=== PATIENT | male | born 1955 | race Caucasian/White ===

== ENCOUNTER 2016-09-10 11:43 | Inpatient (IN) | payer BC ==
[2016-09-10] MEDS ORDERED: Heparin for STEMI(*) 5,000 UNITS/ML 1 ML VIAL IV ONE (12:01)
[2016-09-10] MEDS ORDERED: Nitroglycerin TAB 0.4 MG* 0.4 MG TAB SL ONE (12:01)
[2016-09-10] MEDS ORDERED: Aspirin TAB* 325 MG PO ONE (12:01)
[2016-09-10] MEDS ORDERED: Ticagrelor* 90 MG TAB PO ONE ×2 (12:16→12:17)
[2016-09-10] MEDS ORDERED: Midazolam* 1 MG/ML 5 ML VIAL (5 MG) ONE (12:17)
[2016-09-10] MEDS ORDERED: fentaNYL* 50 MCG/ML 2 ML VIAL (100 MCG VIAL) ONE (12:17)
[2016-09-10] MEDS ORDERED: nitroGLYCERIN DRIP* 250 ML ONE (12:18)
[2016-09-10] MEDS ORDERED: Iohexol 350 (CONTRAST) 200 ML MDV IV ONE ×2 (12:18→12:26)
[2016-09-10] MEDS ORDERED: Heparin 2 UNITS/ML IVPREMIX* 2,000 ML IV ONE (12:18)
[2016-09-10] MEDS ORDERED: Lidocaine 1% INJ* 10 MG/ML 30 ML SDV ONE (12:18)
[2016-09-10] MEDS ORDERED: DOPamine 200 MG/250 ML IVPREM* 200 MG/250 ML ML IV ONE (12:26)
[2016-09-10] MEDS ORDERED: Atropine SYRINGE* 0.1 MG/ML 10 ML SYRINGE (1 MG) ONE (12:30)
[2016-09-10 12:32] LABS: Hematocrit 42 % (42-52); Hemoglobin 13.8 g/dl (14.0-18.0); Mean Corpuscular HGB Conc 33 g/dl (31-36); Mean Corpuscular Hemoglobin 29 pg (27-31); Mean Corpuscular Volume 88 fL (80-94); Mean Platelet Volume 8 um3 (7.4-10.4); Red Blood Count 4.77 10^6/ul (4.0-5.4); Red Cell Distribution Width 14 % (10.5-15); White Blood Count 8.3 10^3/ul (3.5-10.8)
[2016-09-10 12:49] LABS: Albumin 4.1 g/dL (3.2-5.2); BUN/Creatinine Ratio 18.4 (8-20); Calcium 9.2 mg/dL (8.6-10.3); EGFR Non-African American 77.8 (>60); Globulin 3.2 g/dL (2-4); Potassium 3.6 mmol/L (3.5-5.0); Total Bilirubin 0.7 mg/dL (0.2-1.0); Total Protein 7.3 g/dL (6.4-8.9)
[2016-09-10 13:04] LABS: Troponin I 2.75 ng/mL (<0.04)
--- NOTE | 2016-09-10 13:56 | ED ---
I, Yoel,German, scribed for Eric Winn MD on 09/10/16 at 1219 . HPI Chest Pain - HPI Summary HPI Summary: This 61 y/o male presents to ED for intermittent, exertional SOB and chest discomfort since yesterday. Pt reports that he was doing yardwork outdoor yesterday when he experienced SOB. Pt again experienced SOB and chest discomfort radiating while walking on treadmill this morning. He reports that he can handle 3.8 miles without a problem at his baseline, but could only walk 0.25 mile this morning. He also reports right shoulder discomfort but denies CP radiating to back or worsening with deep breaths. He also denies any fever, myalgia, or numbness/tingling. Pt is currently on Trental for known venous stasis. PMHx does not include any HTN, DM, or HLD, but does include mitral valve prolapse, multiple kidney litropsies and stents, and cardiac dysrhythmia since 1980. Pt last ate bagel ~ 1000 AM. - History of Current Complaint Time Seen by Provider: 09/10/16 11:59 Hx Obtained From: Patient, Medical Records Onset/Duration: Started Days Ago, Atraumatic, Still Present Timing: Constant Initial Severity: Moderate Current Severity: None Chest Pain Location: Diffuse Chest Pain Radiates: No Character: Dull/Aching Aggravating Factor(s): Exertion Alleviating Factor(s): Spontaneous Resolution Associated Signs and Symptoms: Positive: Chest Pain, Shortness of Breath, Other : - right shoulder discomfort.. Negative: Numbness, Tingling, Fever - Allergy/Home Medications Allergies/Adverse Reactions: Allergies Allergy/AdvReac Type Severity Reaction Status Date / Time Quinidine Allergy Unknown Verified 06/20/15 15:13 Reaction Details Quinine Allergy Unknown Verified 06/20/15 15:13 Reaction Details PMH/Surg Hx/FS Hx/Imm Hx Endocrine/Hematology History: Denies: Hx Diabetes Cardiovascular History: Reports: Other Cardiovascular Problems/Disorders - cardiac dysrhythmia Denies: Hx Hypertension, Hx Pacemaker/ICD History: Denies: Hx Renal Disease Sensory History: Denies: Hx Hearing Aid Psychiatric History: Denies: Hx Panic Disorder - Surgical History Surgery Procedure, Year, and Place: KIDNEY STENTS- LITHO - STENTS REMOVED. TONSILECTOMY. HERNIA - Family History Known Family History: Negative: Cardiac Disease - father with bypass in 70s. - Social History Alcohol Use: Rare Hx Substance Use: No Substance Use Type: Reports: None Hx Tobacco Use: No Smoking Status (MU): Never Smoked Tobacco Review of Systems Negative: Fever, Chills Negative: Erythema Negative: Sore Throat Positive: Chest Pain - exertional Positive: Shortness Of Breath - exertional Negative: Abdominal Pain, Vomiting, Nausea Negative: dysuria, hematuria Positive: Other - right shoulder discomfort. Negative: Myalgia, Edema Negative: Rash Neurological: Other - negative for dizziness All Other Systems Reviewed And Are Negative: Yes Physical Exam - Summary Physical Exam Summary: Constitutional: Well-developed, Well-nourished, Alert. (-) Distressed Skin: Warm, Dry HENT: Normocephalic; Atraumatic Eyes: Conjunctiva normal Neck: Musculoskeletal ROM normal neck. (-) JVD, (-) Stridor, (-) Tracheal deviation Cardio: Rhythm regular, rate normal, Heart sounds normal; Intact distal pulses; The pedal pulses are 2+ and symmetric. Radial pulses are 2+ and symmetric. (+) 3 /5 Systolic murmur Pulmonary/Chest wall: Effort normal. (-) Respiratory distress, (-) Wheezes, (-) Rales Abd: Soft, (-) Tenderness, (-) Distension, (-) Guarding, (-) Rebound Musculoskeletal: (-) Edema Lymph: (-) Cervical adenopathy Neuro: Alert, Oriented x3 Psych: Mood and affect Normal Triage Information Reviewed: Yes Vital Signs On Initial Exam: Initial Vitals Temp Pulse Resp BP Pulse Ox 36.6 C 98 16 104/74 98 09/10/16 12:05 09/10/16 12:05 09/10/16 12:05 09/10/16 12:05 09/10/16 12:05 Vital Signs Reviewed: Yes Diagnostics - Vital Signs Vital Signs Temp Pulse Resp BP Pulse Ox 09/10/16 12:05 36.6 C 98 16 104/74 98 - Laboratory Lab Results: Lab Results 09/10/16 Range/Units 12:01 B-Natriuretic Peptide 560 H ( - 100) pg/mL Result Diagrams: 09/10/16 12:26 09/10/16 12:26 Lab Statement: Any lab studies that have been ordered have been reviewed, and results considered in the medical decision making process. - Radiology CXR Radiology Interpretation Completed By: Radiologist - SEE EMR for radiologist reading - EKG 1208 Cardiac Rate: NL EKG Rhythm: Sinus Rhythm EKG Interpretation: RBBB. anterior STEMI, inferior V4-V6 1149 Cardiac Rate: NL - 89 bpm EKG Rhythm: Sinus Rhythm EKG Interpretation: RBBB and STEMI Chest Pain Course/Dx - Course Assessment/Plan: This 61 y/o male presents to ED for exertional SOB and chest discomfort since yesterday. PMHx includes afib and vtach as well as mitral valve prolapse. Repeat EKG both at triage and at time of the initial evaluation indicate anterior/inferior STEMI and RBBB. STEMI was called at [address] Barbour, interventionalist, was consulted, and pt was admitted. Re-eval while Dr. Argueta was at bedside. Pt became bradycardic/hypotensive during discussion of the cath, suspect vagal response. 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 Asymptomatic throughout ED stay - Diagnoses Provider Diagnoses: STEMI (ST elevation myocardial infarction) During the Visit The Following Alert/Code Occurred: STEMI - called at 1215 PM - Provider Notifications Discussed Care Of Patient With: Dr. Argueta (Interventionalist) at 1224 PM Time Discussed With Above Provider: 12:24 Instructed by Provider To: Admit As Inpatient - Critical Care Time Critical Care Time: 30-74 min Discharge - Discharge Plan Condition: Stable Disposition: ADMITTED TO [facility] The documentation as recorded by the Yoel salmon Soohyun accurately reflects the service I personally performed and the decisions made by , Eric Winn MD.
[2016-09-10] MEDS ORDERED: Ondansetron INJ* 2 MG/ML VIAL IV PRN (14:03)
[2016-09-10] MEDS ORDERED: Acetaminophen TAB* 325 MG PO PRN (14:03)
[2016-09-10] MEDS ORDERED: Nitroglycerin TAB 0.4 MG* 0.4 MG TAB SL PRN (14:03)
[2016-09-10] MEDS ORDERED: oxyCODONE/Acetamin 5/325 MG* TAB PO PRN (14:03)
[2016-09-10] MEDS ORDERED: Docusate CAP* 100 MG PO PRN (14:03)
[2016-09-10] MEDS ORDERED: NS 0.9% 1000 ML* 1,000 ML IV SCH (14:15)
[2016-09-10] MEDS: Atorvastatin* 40 MG TAB PO SCH ×2 (14:36→19:37)
[2016-09-10 20:58] LABS: Troponin I 2.08 ng/mL (<0.04)
[2016-09-10] MEDS ORDERED: Zolpidem TAB* 5 MG PO PRN (21:00)
[2016-09-10] MEDS: Ticagrelor* 90 MG TAB PO SCH (21:45)
[2016-09-10] MEDS: Metoprolol Tartrate TAB* 25 MG PO SCH (21:45)
--- NOTE | 2016-09-10 22:43 | HP ---
HISTORY AND PHYSICAL: DATE OF ADMISSION: 09/10/16 CHIEF COMPLAINT: Chest heaviness and shortness of breath with exertion. HISTORY OF PRESENT ILLNESS: The patient is a pleasant 61-year-old gentleman who was in his usual state of health until yesterday morning. He was out cutting tall grass plants when he started noticing toward the end of exertion the development of chest heavy sensation and shortness of breath. He rested for a while and eventually over the course of 20 minutes it improved and stopped. Later on last night, he attempted to exercise on a treadmill, something that he he does on a routine basis without significant difficulty but could only walk a short distance before developing the onset of recurrent chest pressure feelings and right shoulder discomfort and shortness of breath. He stopped doing this but did not seek medical attention at that time and it eventually went away. Today, while he was in the hospital doing rounds, he walked up a flight of stairs and as he walked up and got to the top flight he developed the onset of the chest pressure again and the shortness of breath for which he decided to present to the emergency room. He came to the emergency room with these symptoms and an immediate EKG was performed. That EKG revealed the presence of a right bundle branch block with ST segment changes with mild coving in V2, minimal coving in aVL and 1 with T- wave inversion in V3 through V6. Repeat EKG when symptoms seem to be subsided and feeling better revealed more T-wave inversions in the inferior leads and the coving had ceased in 1 in aVL and was still somewhat abnormal in V2. Right bundle branch configuration was seen on both EKGs. A STEMI alert was called in on arrival, the patient was still having mild symptoms. The decision was made to emergently proceed with cardiac catheterization to rule out the presence of critical disease, particularly to the left anterior descending artery. The risks and benefits were explained. He understood them and wished to proceed. PAST MEDICAL HISTORY: The patient has a remote past medical history of paroxysmal atrial fibrillation. More details to be obtained after the cardiac catheterization. He also has a history of lower leg edema and had peripheral venous insufficiency. His only medication was Trental 400 mg once a day. His cardiac risks factors included a negative history of smoking, a negative history of hypertension, negative history of diabetes, and no known history of increased cholesterol. FAMILY HISTORY: He has a family history of father who had bypass surgery at age 75. No history of early coronary artery disease. REVIEW OF SYSTEMS: Pertinent to proceeding with cardiac catheterization, possible intervention included no history of prior TIA, stroke. No history of hematochezia, hematemesis or hematuria. No history of renal insufficiency. PHYSICAL EXAMINATION GENERAL: When I saw him revealed the patient did not appear to be in significant acute distress. VITAL SIGNS: Blood pressure 104/74, pulse was 98 and regular, respirations 16, O2 saturation 98% on room air, afebrile. NECK: Supple. No increased JVP. Carotid without bruit. Conjunctivae were pink. Sclerae clear. LUNGS: Revealed no accessory muscle usage. They were clear to A and P. HEART: Revealed no visible heaves. No palpable heaves or thrills. Normal S1 and S2. I cannot appreciate a significant systolic or diastolic murmur. Heart sounds were somewhat distant. ABDOMEN: Soft and nontender. EXTREMITIES: Without significant clubbing, cyanosis and there was no profound pitting edema noted. The left leg did have a compression stocking in place. MUSCULOSKELETAL: The patient moves all extremities appropriate. NEUROLOGIC: Patient alert, oriented with normal mentation. PSYCHOLOGICAL: The patient with appropriate affect. DIAGNOSTIC STUDIES/LABORATORY DATA: Laboratory results pending at the time of the patient's initial evaluation. 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 At this point in time, I believe emergent cardiac catheterization is indicated. The risks and benefits were explained and he understood them and he wished to proceed. Of note, the patient has received full dose aspirin therapy, has received 180 mg of Brilinta, and 4000 units of heparin intravenously. Further management will be made pending results of the cardiac catheterization. CC: Jeremy Salomon MD * [id number]/[facility] #: [id number] JOSÉ MIGUEL
--- NOTE | 2016-09-10 22:51 | CATH ---
CARDIAC CATHETERIZATION REPORT: DATE OF PROCEDURE: 09/10/16 - ROOM #ICU-12 INDICATIONS FOR PROCEDURE: The patient presented with progressive chest discomfort with exertional activity with abnormal EKG raising the question of acute coronary syndrome with subtle anterior wall ST elevation in early precordial leads and T- wave inversions inferiorly and laterally. PROCEDURE: Coronary arteriography, left heart catheterization, left ventriculography. DESCRIPTION OF PROCEDURE: The patient was interviewed and examined in the emergency room where the risks and benefits were explained. He understood them and wished to proceed. He was brought to the cardiovascular laboratory where formal time-out was performed. The right groin area was anesthetized with 1% lidocaine, the right femoral artery was cannulated with an anterior stick and a 6.5 curved sheath was placed. Coronary arteriography was performed using a 5- Ivorian 4 Holly left coronary catheter and a 5-Ivorian 4 Holly right coronary catheter. A 5- Ivorian angle pigtail catheter was advanced to the ascending aorta where central aortic pressure was recorded. The catheter was then passed towards the aortic valve into the left ventricle, where left ventricular pressure was recorded. Left ventriculography was performed 2 times utilizing initially a bolus of 24 cc of Omnipaque dye at a rate of 12 cc per second followed by a total of 32 cc of Omnipaque dye at a rate of 16 cc per second. The catheter was then pulled back to recheck gradient across the aortic valve. At the end of the case, after consultation was made with Dr. Cox, an injection was made into the right femoral sheath to assess eligibility to utilize a closure device. It was found to be acceptable for this and as such, a 6/7 Ivorian Mynx closure device was deployed with good hemostasis. The total contrast used was 110 cc of Omnipaque dye. The radiation exposure included 5.5 minutes of fluoro time. The air kerma radiation was 793 mGy. The DAPA radiation was 4695 microgray per meter squared. RESULTS: HEMODYNAMIC DATA: Left heart catheterization - Central aortic pressure recorded at 95/67 with a mean of 80. Central aortic pressure was recorded at 101/67 with a mean of 83. Left ventricular pressure 110/left ventricular end diastolic pressure of 31. LEFT VENTRICULOGRAPHY: Performed in the GUO projection revealed virtual akinesis of the mid to distal anterior wall apical region and distal inferior wall with hyperdynamic contractility of the proximal inferior and proximal anterior wall. Overall ejection fraction estimated at 35% to 40%. CORONARY ARTERIOGRAPHY: A. Left coronary artery. 1. Left main - widely patent with no obstruction noted. 2. Left anterior descending artery - the left anterior descending artery supplied a mid bifurcating diagonal branch and traversed to the apical region on to the distal inferior wall. The mid portion of the vessel had mild lumen regularities and in the mid segment was an area of muscle bridging involving the left anterior descending artery. In diastole, the area appeared to have a narrowing of approximately 30% to 35%. It was a dynamic narrowing seen as with systole, the segment narrowed to at least 70% to 75%. Past this point, was some mild 25% to 30% narrowing just prior to the artery turning on to the inferior surface of the heart. 3. Circumflex artery supplying a thin first and second obtuse marginal branch followed by a moderate size mid obtuse marginal branch extending to the low posterolateral apical region. There was mild lumen regularities of 25% seen in the mid portion of the circumflex after the second thin obtuse marginal branch. B. Right coronary artery - a dominant vessel supplying the PDA and 2 to 3 posterior left ventricular branches. Of note, the PDA and the posterior left ventricular branches only supplied the proximal to mid inferior wall as the LAD wrapped around to the apical region and on to the distal inferior wall. There were mild lumen regularities noted in the proximal portion with no significant obstructive disease. OVERALL ASSESSMENT: No significant fixed coronary artery disease with a muscle bridging within the left anterior descending artery system, mid portion, with dynamic narrowing of up to 70% to 75% with a mild 30% narrowing during diastole. Attempts for aggressive medical management for what appears to be a segmental wall motion abnormality involving the LAD with beta-tereso therapy, dual antiplatelet therapy, and hopefully LEONARDO inhibition if blood pressure will tolerate will be pursued in an attempt to allow time in order to have improvement of probable stunned myocardium. We will cycle cardiac enzymes to see the exact nature of the amount of myocardial damage. Further management decisions will be made after reviewing the echocardiogram and the patient's overall hospital course overnight. CC: Jeremy Salomon MD. * [id number]/[facility] #: [id number] MTDD
--- NOTE | 2016-09-10 23:00 | HP ---
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 He states that he has had atrial fibrillation during the course of his life and had been initially treated with drugs such as digoxin, quinidine for which he developed serum sickness reaction and he believes at one point he was actually on Norpace. He also stated that he does have atrial fibrillation and he believes his last episode was perhaps 3 or 4 years ago and it was self-limited and it reverts back longest after an hour. He has not had any sensation like that recently other than he stated that he felt some skipped heartbeats when he got to the top of the stairs today and sat at the nurses' station getting his pulse. He felt skipped heartbeats perhaps at most of a bigeminal pattern, but could not tell whether they were atrial or ventricular. The patient did state that in the past when he was in residency, he would ride a bike up a hill and one time he had a syncopal episode with that. He subsequently had a Holter monitor performed that revealed ventricular tachycardia when he had gone up a hill and had what he believed to be a 20-beat run of ventricular tachycardia on Holter monitor. He did not pass out at that time. At that point in time, he was offered an EP evaluation, which he declined at that point. He had been on beta-tereso therapy in the past but has not been on beta-tereso therapy recently. He states he also has had echocardiograms done as well and he says the only thing that showed up was mitral valve prolapse. He did not remember anything such as a cardiomyopathy with an outflow obstruction. He does have records at home and I have asked him to have his try to get these records for us so that I can review his folder so that I have a better understanding of what was his cardiac history from the past. CC: Jeremy Salomon MD * [id number]/[facility] #: [id number] JOSÉ MGIUEL
[2016-09-11 06:09] LABS: Hematocrit 38 % (42-52); Hemoglobin 12.5 g/dl (14.0-18.0); Mean Corpuscular HGB Conc 33 g/dl (31-36); Mean Corpuscular Hemoglobin 29 pg (27-31); Mean Corpuscular Volume 87 fL (80-94); Mean Platelet Volume 8 um3 (7.4-10.4); Red Cell Distribution Width 14 % (10.5-15); White Blood Count 8.2 10^3/ul (3.5-10.8)
[2016-09-11 06:23] LABS: Albumin 3.1 g/dL (3.2-5.2); BUN/Creatinine Ratio 16.5 (8-20); Calcium 8.1 mg/dL (8.6-10.3); EGFR African American 108.9 (>60); EGFR Non-African American 84.7 (>60); Globulin 2.7 g/dL (2-4); HDL Cholesterol 35.6 mg/dL; Potassium 3.8 mmol/L (3.5-5.0); Total Bilirubin 1.1 mg/dL (0.2-1.0); Total Protein 5.8 g/dL (6.4-8.9)
[2016-09-11 08:30] LABS: Troponin I 1.32 ng/mL (<0.04)
[2016-09-11] MEDS: Metoprolol Tartrate TAB* 25 MG PO SCH ×2 (08:45→21:03)
[2016-09-11] MEDS: Ticagrelor* 90 MG TAB PO SCH ×2 (08:45→21:01)
[2016-09-11] MEDS: Aspirin Low Dose CHEW TAB* 81 MG PO SCH (08:45)
--- NOTE | 2016-09-11 10:57 | ECHO ---
Patient: FABIAN HAGER [facility] Rec#: [id number] : 1955 Date: 09/11/2016 Age: 61y Height: 185.42 cm / 73.0 in Weight: 90.72 kg / 199.9 lbs Sex: M BSA: 2.15 Room#: [facility] Admit Date#: 09/10/2016 Type: Inpatient Referring: Mckay Argueta MD Reading: Mckay Argueta MD Slinger Sequins: Yohana Trevino [facility] Transthoracic Echocardiogram Indication: STEMI BP: 107/57 HR: 57 Rhythm: Bradycardia Findings History: STEMI 09/10/2016, a-fib. Technical Comments: The study quality is good. Completed at 0825. Left Ventricle: Septal wall hypertrophy is observed.There is a mild outflow gradient noted of less than 10 mm hg mean gradient. There is a focal wall motion abnormality present.There is moderate apical hypokinesis and mild distal anterior wall hypokinesis. There is mildly decreased left ventricular systolic function. The estimated ejection fraction is 45-50%. There is no consistent Doppler evidence of clinically significant diastolic dysfunction. Left Atrium: The left atrial chamber size is normal. Right Ventricle: The right ventricular cavity size is normal. The right ventricular global systolic function is normal. Right Atrium: The right atrial cavity size is normal. A patent foramen ovale is not demonstrated with color Doppler and agitated contrast. Aortic Valve: The aortic valve is trileaflet. There is no evidence of aortic regurgitation. There is no evidence of aortic stenosis. Mitral Valve: The anterior leaflet of the mitral valve is thickened. There is no evidence of mitral regurgitation. There is no evidence of mitral stenosis. Tricuspid Valve: The tricuspid valve leaflets are normal. There is trace tricuspid regurgitation. No pulmonary hypertension is noted. There is no tricuspid stenosis. Pulmonic Valve: The pulmonic valve appears normal. There is trace to mild pulmonic regurgitation. There is no pulmonic stenosis. Pericardium: The pericardium appears normal. Aorta: There is no dilatation of the ascending aorta. There is no dilatation of the aortic arch. There is mild dilatation of the aortic root. Pulmonary Artery: The main pulmonary artery appears normal. Venous: The venous system is not well visualized. Contrast: Normal saline was used as contrast for the bubble study. Intravenous contrast was used to help determine presence of intracardiac shunting. Conclusions Septal wall hypertrophy is observed.There is a mild outflow gradient noted of less than 10 mm hg mean gradient. There is a focal wall motion abnormality present.There is moderate apical hypokinesis and mild distal anterior wall hypokinesis. There is mildly decreased left ventricular systolic function. The estimated ejection fraction is 45-50%. There is trace tricuspid regurgitation. There is trace to mild pulmonic regurgitation. There is mild dilatation of the aortic root. No shunting from right to left is noted at the atrial or ventricular level. No reports of prior studies are offered for comparison. Measurements Name Value Normal Range RVIDd (AP) 2D 2.4 cm (0.9 - 2.6) RVDdMajor (2D) 4.1 cm (2.2 - 4.4) RAd ISD 4CH 4.9 cm (3.4 - 4.9) RA (A4C)W 3.7 cm (2.9 - 4.6) IVSd (2D) 1.1 cm (0.6 - 1) LVPWd (2D) 1 cm (0.6 - 1) LVIDd (2D) 4.1 cm (3.6 - 5.4) LVIDs (2D) 3.1 cm - LV FS (2D) 24 % (25 - 45) Aortic Annulus 2.2 cm (1.4 - 2.6) Ao root diameter (2D) 3.7 cm (2.1 - 3.5) Ascending Ao 3.4 cm (2.1 - 3.4) Aortic arch 2.4 cm (1.8 - 3.4) Descending Ao 0.6 cm - LA dimension (AP) 2D 3.8 cm (2.3 - 3.8) LAd ISD 4CH 6.5 cm (2.9 - 5.3) LA ISD 4CH W 4.5 cm (2.5 - 4.5) Name Value Normal Range LA ESV SP 4CH (A/L) 43 ml - LA ESV SP 2CH (A/L) 61 ml - LA ESV BP (A/L) 55 ml - LA ESV BP (A/L) index 25.55 ml/m2 - LA ESV SP 4CH (MOD) 42 ml - LA ESV SP 2CH (MOD) 57 ml - Name Value Normal Range MV E-wave Vmax 0.9 m/sec - MV deceleration time 170 msec - MV A-wave Vmax 0.7 m/sec - MV E:A ratio 1.15 ratio - LV septal e' Vmax 0.08 m/sec - LV lateral e' Vmax 0.07 m/sec - LV E:e' septal ratio 11.25 ratio - LV E:e' lateral ratio 12.85 ratio - Name Value Normal Range AV Vmax 1.9 m/sec - AV VTI 39.3 cm - AV peak gradient 14.23 mmHg - AV mean gradient 7.34 mmHg - LVOT Vmax 1.8 m/sec - LVOT VTI 40.2 cm - LVOT peak gradient 13.45 mmHg - LVOT mean gradient 7.05 mmHg - Name Value Normal Range TR Vmax 1.7 m/sec - TR peak gradient 12 mmHg - RAP 8 mmHg - RVSP 20 mmHg - Name Value Normal Range PV Vmax 1 m/sec - PV peak gradient 3.71 mmHg -
[2016-09-11] MEDS: Atorvastatin* 40 MG TAB PO SCH (16:08)
[2016-09-12] MEDS: Aspirin Low Dose CHEW TAB* 81 MG PO SCH (07:59)
[2016-09-12] MEDS: Ticagrelor* 90 MG TAB PO SCH ×2 (07:59→21:08)
[2016-09-12] MEDS: Metoprolol Succinate XL TAB* 25 MG PO SCH ×2 (08:00→09:11)
[2016-09-12] MEDS: Atorvastatin* 40 MG TAB PO SCH (17:27)
[2016-09-12] MEDS ORDERED: Metoprolol Succinate XL TAB* 25 MG PO ONE (22:00)
[2016-09-13 04:07] VITALS: BP 127/66
[2016-09-13] MEDS: Metoprolol Succinate XL TAB* 25 MG PO SCH (07:54)
[2016-09-13] MEDS: Ticagrelor* 90 MG TAB PO SCH (07:54)
[2016-09-13] MEDS: Aspirin Low Dose CHEW TAB* 81 MG PO SCH (07:54)
--- NOTE | 2016-09-13 20:55 | DS ---
DISCHARGE SUMMARY: DATE OF ADMISSION: 09/10/16 DATE OF DISCHARGE: 09/13/16 FINAL DIAGNOSIS: Non-ST elevation myocardial infarction - Takotsubo syndrome. SECONDARY DIAGNOSES: 1. 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 2. History of paroxysmal atrial fibrillation. 3. Remote of history of exercise-induced ventricular tachycardia. HISTORY OF PRESENT ILLNESS AND HOSPITAL COURSE: The patient is a pleasant 61- year- old gentleman who presented in the throes of a non-ST elevation myocardial infarction with ST-segment changes raising question of minimal injury pattern but not diagnostic in anterior precordial leads with T-wave inversions in V4 through V6 and inferiorly. Please refer to the H and P for complete details of presentation. The patient was taken emergently to the cardiovascular laboratory where cardiac catheterization demonstrated significant left ventricular systolic dysfunction in a focal pattern with virtual akinesis of the mid to distal anterior wall, the apical region and distal inferior wall with hypercontractility of the more proximal wall with a pattern suggestive of a Takotsubo syndrome. Overall EF was estimated at 35% to 40%. His coronary arteries revealed no significant fixed obstructive disease in the left anterior descending artery but the mid segmental left anterior descending artery did have a dynamic narrowing during systole secondary to a muscle bridge with systolic compression producing a narrowing of at least 70% to 75%. During diastole, there appeared to be a mild lesion of 30% to 35%, past this point, there was a mild 25% to 30% narrowing just prior to the artery turning on to the inferior surface. The circumflex artery had mild disease as did the right coronary artery. At that point in time, medical management was pursued with beta-tereso therapy, dual-antiplatelet therapy, and statin therapy. During the course of the hospitalization, he did well. His EKG progressed to deep T-wave inversions throughout the precordial leads in addition to lead I, lead II, aVL, and aVF. Of note, he did have a right bundle branch block configuration on admission and has a history of right bundle branch block, although when EKGs were found from an office visit, back in 2009, there were suggestive findings of no conduction abnormality. The question of whether or not these were actually the EKGs, this patient is still being evaluated. Eventually, he was up and about. He did at one point have mild very low level 1 to 2 chest discomfort on ambulation, but interestingly with further ambulation , he had absolutely no discomfort. His beta tereso was increased to 25 mg in the morning and 12.5 at night of metoprolol succinate and he did well up and about without further symptoms. During the course of the hospitalization, his cardiac enzymes went a downward trend from the moment he presented to the hospital with an initial CPK of 276 and MB of 29.1 and troponin of 2.75. The troponin quickly dissipated down over the next 12 to 24 hours to 1.32. Kidney function was normal. Hemoglobin and hematocrit after dilution and procedure was 12.5 and 38 with a platelet count of 214,000. Echocardiogram was then performed on 09/11/16 and had revealed already improvement of his LV function with perhaps moderate apical hypokinesis but only mild distal anterior wall hypokinesis. The EF was mildly decreased at 45% to 50%. Of note, there was a question of a mild 10-mm mean gradient across the aortic outflow tract with some view suggesting septal hypertrophy asymmetrically. There was trace tricuspid regurgitation, [id number] pulmonic regurgitation. There was no right- to-left shunting on a bubble study. During the course of the hospitalization, no arrhythmias were seen. PHYSICAL EXAMINATION: On the day of discharge, reveals a pleasant gentleman in no acute distress. Blood pressure 127/66, pulse 56 and regular, afebrile, respirations 16, O2 saturation 99% on room air. Neck was supple with no increased JVP. Carotids without bruits. Conjunctivae were pink. Sclerae clear. Mouth revealed moist mucosa. Lungs revealed no accessory muscle usage, they were clear. Heart revealed no visible heaves, no palpable heaves or thrills. Normal S1, S2. If anything, there was a minimal faint systolic murmur. Abdomen was soft. Extremities without significant pitting edema. The right groin area was well healed with minimal tenderness. Pulse was intact. Neuro: The patient alert, oriented with normal mentation. Musculoskeletal: The patient walks with a normal gait. Psychiatric: The patient with normal affect. MEDICATIONS AT THE TIME OF DISCHARGE: Included: 1. Aspirin 81 mg a day. 2. Metoprolol succinate 25 mg in the morning and 12.5 at night. 3. Ticagrelor 90 mg twice a day. 4. Atorvastatin 40 mg a day. DISCHARGE FOLLOWUP: The patient has a scheduled followup appointment with me on 09/19/16 at 8 o'clock a.m. Outpatient continued workup including an MRI to look for asymmetric septal hypertrophy and define it better as well as look at scarring to the left ventricle as well as an eventual exercise nuclear stress test on medications to look for provocable ischemia will be pursued. I answered all of his questions to his satisfaction and he will let us know if there is any change to his status as an outpatient. CC: Dr. Jeremy Salomon* [id number]/[facility] #: [id number] JOSÉ MIGUEL
[2016-09-13] MEDS ORDERED: Metoprolol Succinate XL TAB* 25 MG PO SCH (21:00)
== END 2016-09-13 11:50 | disposition home or self-care (01) | DRG 190 ==
LOC: ED 11:43 → ICU 12:20
PROVIDERS: ADMIT Internal Medicine Cardiovascular Disease; ATTEND Internal Medicine Cardiovascular Disease
PROC: B215YZZ Fluoroscopy of Left Heart using Other Contrast (ICD-10-PCS; 2016-09-10)
PROC: B211YZZ Fluoroscopy of Multiple Coronary Arteries using Other Contrast (ICD-10-PCS; 2016-09-10)
PROC: 4A023N7 Measurement of Cardiac Sampling and Pressure, Left Heart, Percutaneous Approach (ICD-10-PCS; principal; 2016-09-10 12:30)
DX: I21.4 Non-ST elevation (NSTEMI) myocardial infarction (principal); I51.81 Takotsubo syndrome; Q24.5 Malformation of coronary vessels; I45.10 Unspecified right bundle-branch block; I48.0 Paroxysmal atrial fibrillation; I87.8 Other specified disorders of veins; I34.1 Nonrheumatic mitral (valve) prolapse; Z88.8 Allergy status to other drugs, medicaments and biological substances
CPT/HCPCS: 36415; 80053; 80061; 82550; 82553; 83605; 83721; 83874; 83880; 84484; 85025; 85610; 85730; 86850; 86900; 86901; 87641; 93005; 93306; 93458; 99284; A9270-GY; C1760; J0461; J1265; J1644; J2250; J3010

== ENCOUNTER 2018-04-21 07:32 | Emergency (ER) | payer BC ==
[2018-04-21 07:45] VITALS: BP 133/70
[2018-04-21] MEDS ORDERED: predniSONE TAB* 20 MG PO ONE (07:54)
[2018-04-21] MEDS ORDERED: LoraTADine TAB(NF) 10 MG TAB (AUTOSUB to CETIRIZINE) PO ONE (07:55)
--- NOTE | 2018-04-21 08:02 | UC ---
Skin Complaint HPI - HPI Summary HPI Summary: WAS WEEDING HIS GARDEN 3 DAYS AGO. HAS POISON YOLANDA IN THE AREA AND THE NEXT DAY NOTICED AN ITCHY, VESICULAR RASH TO HIS RIGHT FOREARM AND DEVELOPED SOME SWELLING AND REDNESS AROUND HIS RIGHT EYE. NO VISUAL DISTURBANCES, FOREIGN BODY SENSATION, PAIN WITH EXTRAOCULAR MOVEMENTS OR DRAINAGE FROM THE EYE. FEELS LIKE POISON YOLANDA HE HAS HAD IN THE PAST. HAS NOT TAKEN ANY ANTIHISTAMINES OR USE ANY TOPICAL TREATMENTS YET. NO FEVER. - History of Current Complaint Chief Complaint: UCSkin Time Seen by Provider: 04/21/18 07:43 Stated Complaint: RASH Hx Obtained From: Patient Onset/Duration: Gradual Onset, Lasting Days, Still Present Timing: Constant Onset Severity: Moderate Current Severity: Moderate Pain Intensity: 0 Pain Scale Used: 0-10 Numeric Character: Pruritus, Redness Aggravating Factor(s): Touch Alleviating Factor(s): Nothing Associated Signs & Symptoms: Positive: Rash, Tenderness. Negative: Nausea, Fever, Drainage Related History: Possible Reaction to: Environmental Exposure - Allergy/Home Medications Allergies/Adverse Reactions: Allergies Allergy/AdvReac Type Severity Reaction Status Date / Time quinidine Allergy See Comment Verified 04/21/18 07:40 quinine Allergy See Comment Verified 04/21/18 07:40 Home Medications: Home Medications Atorvastatin* [Lipitor 40 MG*] 10 mg PO 1700 04/21/18 [History] Review of Systems Constitutional: Negative Skin: Rash Respiratory: Negative Cardiovascular: Negative Gastrointestinal: Negative All Other Systems Reviewed And Are Negative: Yes PMH/Surg Hx/FS Hx/Imm Hx Cardiovascular History: Cardiac Disease - Surgical History Surgical History: Yes Surgery Procedure, Year, and Place: KIDNEY STENTS- LITHO - STENTS REMOVED. TONSILECTOMY. HERNIA. B/L eye surgery d/t droopy eye lids 2016. cardiac cath september 2016. Defib placement November 2016 - Family History Known Family History: Positive: Hypertension Negative: Cardiac Disease - father with bypass in 70s. - Social History Alcohol Use: Occasionally Alcohol Amount: unknown Substance Use Type: None Smoking Status (MU): Never Smoked Tobacco - Immunization History Most Recent Influenza Vaccination: 2015 Most Recent Tetanus Shot: unk but "up to date" Most Recent Pneumonia Vaccination: never Physical Exam Triage Information Reviewed: Yes Appearance: Well-Appearing, No Pain Distress, Well-Nourished Vital Signs: Initial Vital Signs Temp 97.9 F 04/21/18 07:41 Pulse 56 04/21/18 07:41 Resp 18 04/21/18 07:41 BP 133/70 04/21/18 07:41 Pulse Ox 97 04/21/18 07:41 Vital Signs Reviewed: Yes Eyes: Positive: Conjunctiva Clear, Other: - PERRL, EOMI. ERYTHEMA AND EDEMA RIGHT UPPER AND LOWER LIDS. Negative: Discharge ENT: Positive: Hearing grossly normal Neck: Positive: Supple Respiratory: Positive: No respiratory distress, No accessory muscle use Cardiovascular: Positive: Pulses Normal Musculoskeletal: Positive: ROM Intact Neurological: Positive: Alert Psychological: Positive: Age Appropriate Behavior Skin: Positive: rashes - VESICULAR RASH IN STREAK LIKE PATTERN OVER RIGHT FOREARM. ERYTHEMA AND EDEMA RIGHT UPPER AND LOWER EYELIDS Course/Dx - Diagnoses Provider Diagnoses: POISON YOLANDA DERMATITIS Discharge - Sign-Out/Discharge Documenting (check all that apply): Patient Departure - Discharge Plan Condition: Stable Disposition: HOME Prescriptions: predniSONE TAB* [Deltasone TAB*] 50 mg PO DAILY #4 tab Triamcinolone 0.1% CREAM(NF) [Kenalog Cream 0.1%(NF)] 1 applic TOPICAL TID PRN # 1 tube PRN Reason: Itching Patient Education Materials: Poison Yolanda (ED), Cold Compress or Soak (ED) Referrals: Jeremy Salomon MD [Primary Care Provider] - If Needed Additional Instructions: AVOID HEAT AND HOT WATER THIS WILL AGGRAVATE THE RASH TAKE OTC ANTIHISTAMINE DAILY (CLARITIN (LORATADINE), ZYRTEC (CETIRIZINE) OR GINA (FEXOFENADINE) IN THE MORNING, 25-50MG BENADRYL AT NIGHT) DO NOT SCRATCH KEEP COOL, CLEAN AND DRY USE TOPICAL STEROID SPARINGLY 2-3 TIMES DAILY ON ITCHY SPOTS. KEEP AWAY FROM MUCOUS MEMBRANES. PREDNISONE DAILY FOR 5 DAYS. SEE AN EYE DOCTOR IF YOU DEVELOP ANY PAIN IN THE EYEBALL, VISUAL DISTURBANCE NOT DUE TO PHYSICAL OBSTRUCTION BY THE EYELID, EYE DRAINAGE OR ANY OTHER CONCERNING SYMPTOMS. - Billing Disposition and Condition Condition: STABLE Disposition: Home
== END 2018-04-21 08:02 | disposition home or self-care (01) ==
LOC: UCEAST 07:32
DX: L23.7 Allergic contact dermatitis due to plants, except food (principal); Z88.8 Allergy status to other drugs, medicaments and biological substances
CPT/HCPCS: 99212; A9270-GY; G0463; J7512

== ENCOUNTER → 2018-05-28 13:13 | Emergency (ER) | payer BC ==
[~2018-05-28 13:13] MED LIST: oxyCODONE/Acetamin 5/325 MG* TAB PO ONE
--- OUTSIDE RECORDS SUMMARY | 2018-05-28 16:19 | XMS REPORT ---
:1955 External Reference #:[id number] Author Organization [employer] Address [address] [place] [address] Phone [phone] Care Team Providers Name Role Phone Jeremy Salomon MD Primary Care Physician Unavailable Payers Type Date Identification Numbers Payment Provider Subscriber Commercial Effective: Policy Number: BS Facets Shankar Nunez 2017 [id number] PayID: [id number] [address] [address] [place] [address] Problems Date Description Provider Status Onset: 02/03/2013 Overweight Gina Mchugh M.D., FACP Onset: 02/16/2015 Anti-nuclear factor positive Gian Mchugh M.D., FACP Onset: 06/22/2015 Peripheral venous insufficiency Gina Mchugh M.D., FACP Onset: 06/22/2015 Calculus of kidney and ureter Gina Mchugh M.D., FACP Onset: 06/22/2015 Paroxysmal atrial fibrillation Gina Mchugh M.D.FACP Onset: 09/18/2016 History of myocardial infarction Gina Mchugh M.D., FACP Note: due to LAD/muscle bridge Onset: 09/18/2016 Paroxysmal ventricular Jeremy Salomon M.D., FACP Active tachycardia Note: last in 1983 Onset: 09/19/2016 Takotsubo cardiomyopathy Mckay Argueta M.D., [facility]ACC, Active [facility] Onset: 09/19/2016 Other hypertrophic cardiomyopathy Mckay Argueta M.D., [facility], Active [facility] Onset: 12/26/2016 Automatic implantable cardiac Mckay Argueta M.D., [facility], Active defibrillator in situ [facility] Note: MRI-safe Onset: 02/03/2013 Atrial fibrillation Jeremy Salomon M.D.,[facility] Inactive Inactive: 06/22/2015 Onset: 02/03/2013 Ankle ulcer Jeremy Salmoon M.D.,[facility] Inactive Inactive: 01/16/2017 Onset: 10/24/2016 Premature beats Mckay Argueta M.D., [facility], [facility] Inactive Inactive: 01/16/2017 Family History Date Family Member(s) Problem(s) Comments Onset: (age 50 Father Atrial Fibrillation Years) : (age 90 Father due to Natural Years) Causes Onset: (age 75 Father CABG Years) : (age 92 Mother due to Natural Years) Causes Mother Congestive Heart Failure (CHF) First Son cerebral palsy lives in fdc Second Son Autism Spectrum D/O Second Son Tourette's First Daughter Depression Siblings 2 First Brother Hypertension First Sister Multiple Sclerosis (MS) possible Social History Type Date Description Comments Marital Status 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 Cigarette Use Never Smoked Cigarettes ETOH Use 01/16/2017 Occasionally consumes wine Smoking Patient has never smoked Recreational Drug Use Denies Drug Use Daily Caffeine Does Not Consume Caffeine Exercise Type/Frequency Exercises regularly stationary bike/treadmill 3-4x/wk General Hx Text 4 children Allergies, Adverse Reactions, Alerts Date Description Reaction Status Severity Comments 02/03/2013 Quinidine serum sickness reaction active 02/03/2013 Quinine active Medications Medication Date Status Form Strength Qnty SIG Indications Ordering Provider Prednisone Active Tablets 50mg 7tabs Take one L27.0 Jeremy 018 tablet by dave Brannon for Wilmer,[facility] 1 week. Atorvastatin Active Tablets 10mg 90tabs take 1 Mckay Calcium 017 tablet by Ellie mouth at M.D., bedtime [facility] Aspirin Adult Active Tablets DR 81mg 30tabs take one Other Low Strength 017 tablet by Ordering mouth Provider daily. Toprol XL Active Tablets ER 25mg 270tab 2 tabs in Mckay 017 24HR s the in [place], the M.D., morning FACC, and 1 tab FSCAI in the at night Atorvastatin Hx Tablets 40mg 30tabs 1 by Jeremy Persaud 017 - mouth D. Thompson, every day M.D.,FACP 017 Brilinta Hx Tablets 90mg 60tabs 1 tab by Other 017 - mouth Ordering twice a Provider 017 day No Active Hx Unknown Medications 015 - 015 Naproxen Hx Tablets 500mg 30tabs 1 tablet 719.47 Jamaal 015 - by mouth Aguilar, twice a M.D. 015 day with foods as needed pain No Active Hx Unknown Medications 013 - 015 Trental Hx Tablets ER 400mg 1 tablet Unknown 000 - daily 017 Immunizations CPT Code Status Date Vaccine Reaction Lot # [id number] Given 01/16/2017 Zoster (Zostavax) no reaction, pt [id number] tolerated well. 39085 Given 09/13/2016 Influenza Virus Vaccine, Quadrivalent, Split Virus, [place] Use 07246 Given 06/16/2015 Flu Vaccine Split Virus Preservative Free For Indiv 3Yr Older 84016 Given 02/03/2013 Tdap - [id number] Tetanus/Diptheria/Acellular Pertussis 01009 Given 07/19/2012 Influenza Virus 3Yrs & Over Vital Signs Date Vital Result Comment 04/29/2018 Height 72.25 inches 6'0.25" Weight 231.00 lb Heart Rate 78 /min BP Systolic 122 mmHg BP Diastolic 78 mmHg O2 % BldC Oximetry 98 % BMI (Body Mass Index) 31.1 kg/m2 03/18/2017 Height 72.25 inches 6'0.25" Weight 221.00 lb w/ shoes Heart Rate 58 /min reg BP Systolic Sitting 116 mmHg Rue, reg cuff BP Diastolic Sitting 74 mmHg Rue, reg cuff BP Systolic Standing 114 mmHg Rue BP Diastolic Standing 74 mmHg Rue Respiratory Rate 16 /min BMI (Body Mass Index) 29.8 kg/m2 Ejection Fraction 45-50% as of 09/2016 echo 01/16/2017 Height 72.25 inches 6'0.25" Weight 217.25 lb Heart Rate 57 /min BP Systolic Sitting 108 mmHg BP Diastolic Sitting 66 mmHg Body Temperature 97.7 F O2 % BldC Oximetry 98 % BMI (Body Mass Index) 29.3 kg/m2 12/26/2016 Height 73 inches 6'1" Weight 217.00 lb w/ shoes Heart Rate 66 /min reg BP Systolic Sitting 120 mmHg Lue, reg cuff BP Diastolic Sitting 84 mmHg Lue, reg cuff BP Systolic Standing 122 mmHg Lue BP Diastolic Standing 84 mmHg Lue Respiratory Rate 16 /min BMI (Body Mass Index) 28.6 kg/m2 Ejection Fraction 45-50% as of 09/2016 echo 10/24/2016 Height 73 inches 6'1" Weight 211.00 lb w/o shoes Heart Rate 60 /min reg BP Systolic Sitting 106 mmHg Lue, reg cuff BP Diastolic Sitting 74 mmHg Lue, reg cuff BP Systolic Standing 110 mmHg Lue BP Diastolic Standing 76 mmHg Lue Respiratory Rate 16 /min BMI (Body Mass Index) 27.8 kg/m2 09/19/2016 Height 73 inches 6'1" Weight 205.00 lb w/ shoes Heart Rate 76 /min reg BP Systolic Sitting 110 mmHg Rue, reg cuff BP Diastolic Sitting 80 mmHg Rue, reg cuff BP Systolic Standing 112 mmHg Rue BP Diastolic Standing 78 mmHg Rue Respiratory Rate 16 /min BMI (Body Mass Index) 27.0 kg/m2 Ejection Fraction 45-50% as of 09/11/16 echo 09/18/2016 Weight 206.00 lb Heart Rate 64 /min BP Systolic Sitting 128 mmHg BP Diastolic Sitting 76 mmHg Body Temperature 96.8 F O2 % BldC Oximetry 96 % 06/22/2015 Height 72 inches 6'0" Weight 214.00 lb Heart Rate 67 /min BP Systolic Sitting 134 mmHg BP Diastolic Sitting 84 mmHg Body Temperature 97.6 F O2 % BldC Oximetry 97 % BMI (Body Mass Index) 29.0 kg/m2 02/16/2015 Height 73.25 inches 6'1.25" Weight 232.12 lb Heart Rate 80 /min BP Systolic Sitting 122 mmHg BP Diastolic Sitting 78 mmHg Body Temperature 97.9 F O2 % BldC Oximetry 97 % BMI (Body Mass Index) 30.4 kg/m2 01/05/2015 Height 73.25 inches 6'1.25" Weight 238.12 lb Heart Rate 79 /min BP Systolic Sitting 144 mmHg BP Diastolic Sitting 72 mmHg Body Temperature 97.5 F O2 % BldC Oximetry 98 % BMI (Body Mass Index) 31.2 kg/m2 02/03/2013 Height 73.25 inches 6'1.25" Weight 238.25 lb Heart Rate 96 /min BP Systolic Sitting 136 mmHg BP Diastolic Sitting 86 mmHg BMI (Body Mass Index) 31.2 kg/m2 Results Test Date Test Result H/L Range Note Lipid Profile (Trig/Chol/HDL) 01/30/2018 Triglycerides 107 mg/dL 1 Cholesterol 128 mg/dL 2 HDL Cholesterol 47.2 mg/dL 3 LDL Cholesterol 59 mg/dL 4 Laboratory test finding 01/30/2018 Alt (SGPT) 27 U/L 7-52 Ast (Sgot) 25 U/L 13-39 Lipid Profile (Trig/Chol/HDL) 11/29/2016 Triglycerides 130 mg/dL 5 Cholesterol 89 mg/dL 6 HDL Cholesterol 40.7 mg/dL 7 LDL Cholesterol 22 mg/dL 8 Comp Metabolic Panel 11/29/2016 Sodium 138 mmol/L 133-145 Potassium 4.4 mmol/L 3.5-5.0 Chloride 104 mmol/L 101-111 Co2 Carbon Dioxide 29 mmol/L 22-32 Anion Gap 5 mmol/L 2-11 Glucose 99 mg/dL 70-100 Blood Urea Nitrogen 17 mg/dL 6-24 Creatinine 0.91 mg/dL 0.67-1.17 BUN/Creatinine Ratio 18.7 8-20 Calcium 9.1 mg/dL 8.6-10.3 Total Protein 7.1 g/dL 6.4-8.9 Albumin 4.0 g/dL 3.2-5.2 Globulin 3.1 g/dL 2-4 Albumin/Globulin Ratio 1.3 1-3 Total Bilirubin 0.80 mg/dL 0.2-1.0 Alkaline Phosphatase 55 U/L 34-104 Alt 31 U/L 7-52 Ast 24 U/L 13-39 Egfr Non- 84.7 >60 Egfr 108.9 >60 9 Laboratory test finding 11/29/2016 Hepatitis C Antibody Nonreactive Nonreactive TSH (Thyroid Stim Horm) 2.02 mcIU/mL 0.34-5.60 CBC Auto Diff 11/29/2016 White Blood Count 6.1 10^3/uL 3.5-10.8 Red Blood Count 4.64 10^6/uL 4.0-5.4 Hemoglobin 13.4 g/dL Low 14.0-18.0 Hematocrit 41 % Low 42-52 Mean Corpuscular Volume 88 fL 80-94 Mean Corpuscular Hemoglobin 29 pg 27-31 Mean Corpuscular HGB Conc 33 g/dL 31-36 Red Cell Distribution Width 14 % 10.5-15 Platelet Count 216 10^3/uL 150-450 Mean Platelet Volume 8 um3 7.4-10.4 Abs Neutrophils 2.7 10^3/uL 1.5-7.7 Abs Lymphocytes 2.3 10^3/uL 1.0-4.8 Abs Monocytes 0.6 10^3/uL 0-0.8 Abs Eosinophils 0.3 10^3/uL 0-0.6 Abs Basophils 0.1 10^3/uL 0-0.2 Abs Nucleated RBC 0 10^3/uL Granulocyte % 45.2 % 38-83 Lymphocyte % 38.5 % 25-47 Monocyte % 9.9 % High 1-9 Eosinophil % 5.5 % 0-6 Basophil % 0.9 % 0-2 Nucleated Red Blood Cells % 0 Creatinine 01/17/2016 Creatinine 0.99 mg/dL 0.67-1.17 Egfr Non- 76.9 >60 Egfr 98.8 >60 10 Lipid Profile (Trig/Chol/HDL) 06/19/2015 Triglycerides 128 mg/dL 11, 12 Cholesterol 175 mg/dL 11, 13 HDL Cholesterol 43.1 mg/dL 11, 14 LDL Cholesterol 106 mg/dL 11, 15 Laboratory test finding 06/19/2015 Glucose 94 mg/dL 70-100 11, 16 Laboratory test finding 01/18/2015 SS-B/La Antibody <0.2 U 17 Anti Ssa/Ro Antibody <0.2 U 18 Anti Double Stranded Dna Negative Negative Hetal Screen Negative Negative 19 Urinalysis Profile 01/18/2015 Urine Color Yellow Urine Appearance Clear Urine Specific [place] 1.025 1.010-1.030 Urine pH 6.0 5-9 Urine Urobilinogen Negative Negative Urine Ketones Negative Negative Urine Protein Negative Negative Urine Leukocytes Negative Negative Urine Blood Negative Negative * * Negative 20 Urine Nitrite Negative Negative Urine Bilirubin Negative Negative Urine Glucose Negative Negative Laboratory test finding 01/05/2015 Uric Acid 5.2 mg/dL 4.4-7.6 Rheumatoid Factor <15 IU/mL <15 21 Erythrocyte Sed Rate 14 mm/Hr 0-20 Neris Hep-2 01/05/2015 Neris Pattern Centromere Negative Neris Titer 1:640 <1:80 Neris Reviewed By MD Ryan Fooet <SEE NOTE> 22 Laboratory test 01/05/2015 Neris (Anti-Nuclear AB) Reflexed to FA Negative finding Screen Comp Metabolic Panel 01/05/2015 Sodium 137 mmol/L 133-145 Potassium 4.2 mmol/L 3.5-5.0 Chloride 105 mmol/L 101-111 Co2 Carbon Dioxide 31 mmol/L 22-32 Anion Gap 1 mmol/L Low 2-11 Glucose 96 mg/dL 70-100 Blood Urea Nitrogen 13 mg/dL 6-24 Creatinine 0.84 mg/dL 0.67-1.17 BUN/Creatinine Ratio 15.5 8-20 Calcium 9.1 mg/dL 8.6-10.3 Total Protein 7.0 g/dL 6.4-8.9 Albumin 4.2 g/dL 3.2-5.2 Globulin 2.8 g/dL 2-4 Albumin/Globulin Ratio 1.5 1-3 Total Bilirubin 0.60 mg/dL 0.2-1.0 Alkaline Phosphatase 58 U/L 34-104 Alt 24 U/L 7-52 Ast 19 U/L 13-39 Egfr Non- 93.5 >60 Egfr 120.3 >60 23 CBC Auto Diff 01/05/2015 White Blood Count 5.0 10^3/uL 4.8-10.8 Red Blood Count 4.85 10^6/uL 4.0-5.4 Hemoglobin 14.6 g/dL 14.0-18.0 Hematocrit 44 % 42-52 Mean Corpuscular Volume 90 fL 80-94 Mean Corpuscular Hemoglobin 30 pg 27-31 Mean Corpuscular HGB Conc 34 g/dL 31-36 Red Cell Distribution Width 14 % 10.5-15 Platelet Count 256 10^3/uL 150-450 Mean Platelet Volume 8 um3 7.4-10.4 Abs Neutrophils 2.5 10^3/uL 1.5-7.7 Abs Lymphocytes 1.9 10^3/uL 1.0-4.8 Abs Monocytes 0.4 10^3/uL 0-0.8 Abs Eosinophils 0.1 10^3/uL 0-0.6 Abs Basophils 0.1 10^3/uL 0-0.2 Abs Nucleated RBC 0.01 10^3/uL Granulocyte % 49.7 % 38-83 Lymphocyte % 38.1 % 25-47 Monocyte % 8.7 % 1-9 Eosinophil % 2.5 % 0-6 Basophil % 1.0 % 0-2 Nucleated Red Blood Cells % 0.1 Laboratory test finding 02/04/2013 Vitamin B12 208 pg/mL 180-914 24 Mumps Igg 02/04/2013 Mumps Virus IgG Antibody Positive Negative 25 Mumps IgG Antibody Index 8.45 0.00-0.89 26 Laboratory test finding 02/04/2013 Rubella IgG Antibody Positive Negative 27 Rubeola (Measles) IgG Antibody Positive Negative 28 Varicella-Zoster IgG Antibody Positive Negative 29 Manual Differential 02/04/2013 Neutrophil % 43 % 38-83 Lymphocytes % 46 % 25-47 Monocytes % 9 % 0-13 Eosinophils % 2 % 0-6 RBC Morphology Normal Normal Laboratory test finding 02/04/2013 TSH (Thyroid Stimulating 2.88 miu/mL 0.34-5.60 30 Horm) CBC Auto Diff 02/04/2013 White Blood Count 4.9 10^3/uL 4.8-10.8 Red Blood Count 4.93 10^6/uL 4.0-5.4 Hemoglobin 14.6 g/dL 14.0-18.0 Hematocrit 44 % 42-52 Mean Corpuscular Volume 89 fL 80-94 Mean Corpuscular Hemoglobin 30 pg 27-31 Mean Corpuscular HGB Conc 33 g/dL 31-36 Red Cell Distribution Width 14 % 10.5-15 Platelet Count 249 10^3/uL 150-450 Mean Platelet Volume 8 um3 7.4-10.4 Abs Neutrophils 1.9 10^3/uL 1.5-7.7 Abs Lymphocytes 2.4 10^3/uL 1.0-4.8 Abs Monocytes 0.4 10^3/uL 0-0.8 Abs Eosinophils 0.2 10^3/uL 0-0.6 Abs Basophils 0 10^3/uL 0-0.2 Abs Nucleated RBC 0.01 10^3/uL Laboratory test finding 02/04/2013 Glucose 90 mg/dL 70-100 31 Lipid Profile (Trig/Chol/HDL) 02/04/2013 Triglycerides 233 mg/dL High 40- 200 Cholesterol 189 mg/dL Less than 200 HDL Cholesterol 36 mg/dL Low 40-60 32 Cholesterol/HDL Ratio 5.3 Average High 1-4.44 LDL Cholesterol 106.4 mg/dL High Less Than 100 33 1 Desirable: <150 Borderline High: 150-199 High: 200-499 Very High: >500 2 Desirable: <200 Borderline High: 200-239 High: >239 3 Low: <40 Desirable: 40-60 High: >60 4 Desirable: <100 Near Optimal: 100-129 Borderline High: 130-159 High: 160-189 Very High: >189 5 Desirable <150 Borderline high 150-199 High 200-499 Very High >500 6 Desirable <200 Borderline high 200-239 High >239 7 Low <40 Desirable: 40-60 High: >60 8 Desirable: <100 mg/dL Near Optimal: 100-129 mg/dL Borderline High: 130-159 mg/dL High: 160-189 mg/dL Very High: >189 mg/dL 9 Because ethnic data is not always readily available, this report includes an eGFR for both -Americans and non- Americans. The National Kidney Disease Education Program (NKDEP) does not endorse the use of the MDRD equation for patients that are not between the ages of 18 and 70, are , have extremes of body size, muscle mass, or nutritional status, or are non- or non-. According to the National Kidney Foundation, irrespective of diagnosis, the stage of the disease is based on the level of kidney function: Stage Description GFR(mL/min/1.73 m(2)) 1 Kidney damage with normal or decreased GFR 90 2 Kidney damage with mild decrease in GFR 60-89 3 Moderate decrease in GFR 30-59 4 Severe decrease in GFR 15-29 5 Kidney failure <15 (or dialysis) 10 Because ethnic data is not always readily available, this report includes an eGFR for both -Americans and non- Americans. The National Kidney Disease Education Program (NKDEP) does not endorse the use of the MDRD equation for patients that are not between the ages of 18 and 70, are , have extremes of body size, muscle mass, or nutritional status, or are non- or non-. According to the National Kidney Foundation, irrespective of diagnosis, the stage of the disease is based on the level of kidney function: Stage Description GFR(mL/min/1.73 m(2)) 1 Kidney damage with normal or decreased GFR 90 2 Kidney damage with mild decrease in GFR 60-89 3 Moderate decrease in GFR 30-59 4 Severe decrease in GFR 15-29 5 Kidney failure <15 (or dialysis) 11 FASTING 12 Desirable <150 Borderline high 150-199 High 200-499 Very High >500 13 Desirable <200 Borderline high 200-239 High >239 14 Low <40 Desirable: 40-60 High: >60 15 Desirable: <100 mg/dL Near Optimal: 100-129 mg/dL Borderline High: 130-159 mg/dL High: 160-189 mg/dL Very High: >189 mg/dL 16 FASTING 17 REFERENCE VALUE <1.0 (Negative) Test Performed by: [place] [address] Card Cleaner: Jeb Doan II, M.D., Ph.D. 18 REFERENCE VALUE <1.0 (Negative) Test Performed by: [place] [address] Card Cleaner: Jeb Doan II, M.D., Ph.D. 19 The above HETAL screen is designed for the detection of antibodies to extractable nuclear antigen (HETAL) in human serum. It is a combination test for the detection of antibodies to SCREEDMAN, Sm, SS-A (Ro), and SS-B (La) nuclear antigens. 20 *Ascorbic acid is present which may interfere with detection of blood. 21 Test Performed by: [place] [address] Card Cleaner: Jeb Doan II, M.D., Ph.D. 22 Ryan Clark 23 Because ethnic data is not always readily available, this report includes an eGFR for both -Americans and non- Americans. The National Kidney Disease Education Program (NKDEP) does not endorse the use of the MDRD equation for patients that are not between the ages of 18 and 70, are , have extremes of body size, muscle mass, or nutritional status, or are non- or non-. According to the National Kidney Foundation, irrespective of diagnosis, the stage of the disease is based on the level of kidney function: Stage Description GFR(mL/min/1.73 m(2)) 1 Kidney damage with normal or decreased GFR 90 2 Kidney damage with mild decrease in GFR 60-89 3 Moderate decrease in GFR 30-59 4 Severe decrease in GFR 15-29 5 Kidney failure <15 (or dialysis) 24 PT IS FASTING 25 Results suggest response to immunization or prior exposure to the virus. 26 Test Performed by: [place] [address] Card Cleaner: Kevin Gupta III, M.D. 27 Test Performed by: [place] [address] Card Cleaner: Kevin Gupta III, M.D. 28 Test Performed by: [place] [address] Card Cleaner: Kevin Gupta III, M.D. 29 Test Performed by: [place] [address] Card Cleaner: Kevin Gupta III, M.D. 30 PT IS FASTING 31 PT IS FASTING 32 HDL Interpretation: Undesirable: High Risk: Less than 40 mg/dL Desirable: Low Risk: Greater than 60 mg/dL 33 LDL Interpretation: Low Risk Optimal Level: LDL Less than 100 mg/dL Near or Above Optimal: LDL 100-129 mg/dL Borderline High Risk: LDL 130-159 mg/dL High Risk: LDL 160-189 mg/dL Very High Risk: LDL Greater than 189 mg/dL Procedures Date CPT Code Description Status 03/12/2018 27422 Interrogation Implant Cardiovasc Monitor System Incl Completed Analysis Int 03/12/2018 49823 Interrogation Implant Cardiovasc Monitor System Incl Completed Analysis Int 03/12/2018 28891 Icd eval w/iterative adjment single lead Icd Completed 03/12/2018 94401 Icd eval w/iterative adjment single lead Icd Completed 10/09/2017 05712 Interrogation Implant Cardiovasc Monitor System Incl Completed Analysis Int 10/09/2017 04392 Interrogation Implant Cardiovasc Monitor System Incl Completed Analysis Int 10/09/2017 80543 Icd Eval W/Iterative Adjustmnt Single Lead Icd Completed 10/09/2017 72074 Icd Eval W/Iterative Adjustmnt Single Lead Icd Completed 05/01/2017 71223 Interrogation Implant Cardiovasc Monitor System Incl Completed Analysis Int 05/01/2017 41770 Icd eval w/iterative adjment single lead Icd Completed 03/18/2017 26822 EKG Tracing & Interpretation Completed 01/02/2017 39536 Icd eval w/iterative adjment single lead Icd Completed 12/26/2016 21471 EKG Tracing & Interpretation Completed 11/07/2016 06791 Treadmill Interp/Report Only Completed 11/07/2016 71373 Stress Test Supervsn W/Out I/R Completed 10/26/2016 58956 Holter Monitor Review (24 hr)dr review & interp only Completed 10/22/2016 07721 Treadmill Interp/Report Only Completed 10/22/2016 88175 Stress Test Supervsn W/Out I/R Completed 09/19/2016 97250 EKG Tracing & Interpretation Completed 09/12/2016 66428 EKG, Interpretation Only Completed 09/11/2016 94728 ECHO Transthorasic Realtime 2D W Doppler & Color Flow Completed Hosp 09/11/2016 80427 EKG, Interpretation Only Completed 09/10/2016 29900 Left Heart Cath. Incl S/I Coronaries, Angio S/I V Gram Completed If Done 09/10/2016 10817 EKG, Interpretation Only Completed 06/22/2015 Colonoscopy Completed Encounters Type Date Location Provider CPT E/M Dx Office Visit 03/18/2017 [facility] Argueta M.D., 80919 I48.0 2:40p [place] [facility], [facility]AI I47.2 I42.2 Z95.810 Z01.810 H02.409 Office Visit 01/16/2017 10:30a [facility] Jeremy Salomon, [address]3079 Z00.01 Medicine - [place] Jaime Guillen,FACP I47.2 M72.2 T44.7x5A Z23 Office Visit 12/26/2016 1:20p [facility] Argu[facility] M.D., 38415 Z95.810 [place] AT [facility], [facility] I47.2 I42.2 Office Visit 10/24/2016 3:20p [facility] Argu[facility] M.D., 33525 I51.81 [place] AT [facility], [facility] I49.3 Office Visit 09/19/2016 8:20a [facility] Mckay Argueta M.D., 85126 I51.81 [place] AT [facility], [facility] I42.2 Office Visit 09/18/2016 4:00p [facility] Internal Jeremy Salomon, 64344 I21.02 Medicine - [place] Jaime Guillen,[facility] Z11.59 Office Visit 09/13/2016 12:03p [facility] Deb Argueta M.D., 16980 I21.4 [facility] AT [facility], [facility] Office Visit 09/12/2016 11:45a [facility] Deb Argueta M.D., 77462 I21.4 [facility] AT [facility], [facility] Office Visit 09/11/2016 11:44a [facility] M.D., 55383 I21.4 [place] AT [facility], [facility] Office Visit 09/10/2016 3:49p [facility] Deb Argueta M.D., 22048 I21.02 [facility] AT [facility], [facility] Office Visit 06/22/2015 3:00p [facility] Internal Medicine Jeremy Salomon, 08472 Z00.01 - [place] Jaime Guillen,[facility] I87.2 E66.3 Z11.59 N39.3 Office Visit 02/16/2015 4:20p [facility] Internal Jeremy Salomon, 49424 459.81 Medicine - [place] Jaime Guillen,[facility] V76.51 Office Visit 01/05/2015 10:40a [facility] Internal Medicine Jamaal Aguilar M.D. [address] 719.47 - [place] [address] Office Visit 02/03/2013 1:00p [facility] Internal Medicine Jeremy Salomon, 88748 V70.0 - Terrie Guillen,FACP 707.13 278.02 V76.51 427.31 780.79 V06.1 Plan of Care Future Appointment(s):06/18/2018 2:40 pm - Virginia Cordero M.D. at [facility]04/29/2018 - Erma Fatima, RPA-CL27.0 Gen skin eruption due to drugs and meds taken internallyNew Medication:Prednisone 50 mgFollow up: Please start an OTC antihistamine like Daniela, Claritin, or Zyrtec. Call on Friday, 05/02 if symptoms are not improving.
[2018-05-28 17:07] LABS: ABS Basophils 0 10^3/ul (0-0.2); ABS Eosinophils 0.1 10^3/ul (0-0.6); ABS Lymphocytes 0.9 10^3/ul (1.0-4.8); ABS Monocytes 0.9 10^3/ul (0-0.8); ABS Neutrophils 3.9 10^3/ul (1.5-7.7); ABS Nucleated RBC 0 10^3/ul; Eosinophil % 2.2 % (0-6); Hematocrit 38 % (42-52); Hemoglobin 12.5 g/dl (14.0-18.0); Lymphocyte % 14.8 % (25-47); Mean Corpuscular HGB Conc 33 g/dl (31-36); Mean Corpuscular Hemoglobin 30 pg (27-31); Mean Corpuscular Volume 89 fL (80-94); Mean Platelet Volume 7.4 um3 (7.4-10.4); Nucleated Red Blood Cells % 0; Platelet Count 247 10^3/ul (150-450); Red Blood Count 4.24 10^6/ul (4.00-5.40); Red Cell Distribution Width 14 % (10.5-15); White Blood Count 5.8 10^3/ul (3.5-10.8)
[2018-05-28 17:09] LABS: EGFR Non-African American 86.3 (>60)
[2018-05-28 17:13] LABS: INR 1.04 (0.77-1.02)
--- NOTE | 2018-05-28 17:35 | ED ---
Abdominal Pain/Male - HPI Summary HPI Summary: This patient is a 63 year old M presenting to [facility] with a chief complaint of 5x episodes of RUQ/RL chest pain since 05/27/18 at 0200, the most recent episode at 1245. He describes the pain as a pressure pain, and is currently at 3/10 severity, but during the episodes it is much worse. The most recent episode showed associated radiation to shoulder. The first episode or 2 caused pain in his right flank, but now the sx are in his RUQ and lower right chest. He notes that the sx are alleviated by ibuprofen. He notes minimal SOB and mild nausea, but denies emesis. He denies any sx change with eating. He denies experiencing similar sx in the past, specifically denies similarity to his sx during his PA in September of 2016. PMHx CAD, PA, implanted defibrillator, hypertrophic myopathy , syncopal VTach, and sustained VTach. - History of Current Complaint Time Seen by Provider: 05/28/18 16:17 Hx Obtained From: Patient Onset/Duration: Sudden Onset, Lasting Days, Still Present Timing: Intermittent Severity Initially: Moderate Severity Currently: Mild Pain Intensity: 3 Pain Scale Used: 0-10 Numeric Location: Discrete At: RUQ Radiates: Yes Radiates to: Chest - right lower chest, Other - right shoulder Character: Other: - pressure Aggravating Factor(s): Nothing Alleviating Factor(s): Medications - ibuprofen Associated Signs And Symptoms: Positive: Chest Pain, Nausea, Other - mild SOB. Negative: Vomiting - Allergies/Home Medications Allergies/Adverse Reactions: Allergies Allergy/AdvReac Type Severity Reaction Status Date / Time quinidine Allergy See Comment Verified 04/21/18 07:40 quinine Allergy See Comment Verified 04/21/18 07:40 PMH/Surg Hx/FS Hx/Imm Hx Endocrine/Hematology History: Denies: Hx Diabetes Cardiovascular History: Reports: Hx Angina, Hx Auto Implanted Cardiovert Defib, Hx Coronary Artery Disease, Hx Myocardial Infarction, Other Cardiovascular Problems/Disorders - venous statis, syncopal+sustained vtach, hypertrophic myopathy Denies: Hx Hypercholesterolemia, Hx Hypertension, Hx Valvular Heart Disease Respiratory History: Denies: Hx Asthma, Hx Chronic Obstructive Pulmonary Disease (COPD) GI History: Denies: Hx Ileostomy History: Reports: Hx Kidney Stones, Other Problems/Disorders - several kidney stents Denies: Hx Renal Disease Sensory History: Reports: Hx Contacts or Glasses Denies: Hx Legally Blind, Hx Deafness, Hx Hearing Aid Opthamlomology History: Reports: Hx Contacts or Glasses Denies: Hx Legally Blind EENT History: Denies: Hx Deafness Neurological History: Denies: Hx Dementia Psychiatric History: Denies: Hx Autism, Hx Panic Disorder - Surgical History Surgery Procedure, Year, and Place: KIDNEY STENTS- LITHO - STENTS REMOVED. TONSILECTOMY. HERNIA. B/L eye surgery d/t droopy eye lids 2016. cardiac cath september 2016. Defib placement November 2016 Infectious Disease History: Denies: Traveled Outside the [place] in Last 30 Days - Family History Known Family History: Positive: Hypertension Negative: Cardiac Disease - father with bypass in 70s. - Social History Occupation: Employed Full-time Alcohol Use: Occasionally Alcohol Amount: unknown Hx Substance Use: No Substance Use Type: Reports: None Hx Tobacco Use: No Smoking Status (MU): Never Smoked Tobacco Review of Systems Negative: Fever Positive: Chest Pain Positive: Shortness Of Breath Positive: Abdominal Pain, Nausea. Negative: Vomiting Positive: flank pain Positive: Arthralgia - right shoulder All Other Systems Reviewed And Are Negative: Yes Physical Exam - Summary Physical Exam Summary: VITAL SIGNS: Reviewed. GENERAL: Patient is a well-developed and nourished (MALE OR FEMALE) who is lying comfortable in the stretcher. Patient is not in any acute respiratory distress. HEAD AND FACE: No signs of trauma. No ecchymosis, hematomas or skull depressions. No sinus tenderness. EYES: PERRLA, EOMI x 2, No injected conjunctiva, no nystagmus. EARS: Hearing grossly intact. Ear canals and tympanic membranes are within normal limits. MOUTH: Oropharynx within normal limits. NECK: Supple, trachea is midline, no adenopathy, no JVD, no carotid bruit, no c- spine tenderness, neck with full ROM. CHEST: Symmetric, no tenderness at palpation LUNGS: Clear to auscultation bilaterally. No wheezing or crackles. CVS: Regular rate and rhythm, S1 and S2 present, no murmurs or gallops appreciated. ABDOMEN: Soft, tender RUQ. No signs of distention. No rebound no guarding, and no masses palpated. Bowel sounds are normal. EXTREMITIES: FROM in all major joints, no edema, no cyanosis or clubbing. NEURO: Alert and oriented x 3. No acute neurological deficits. Speech is normal and follows commands. SKIN: Dry and warm Triage Information Reviewed: Yes Vital Signs Reviewed: Yes Diagnostics - Laboratory Lab Results: Lab Results 05/28/18 05/28/18 05/28/18 Range/Units Unknown Unknown Unknown WBC 5.8 (3.5-10.8) 10^3/ul RBC 4.24 (4.00-5.40) 10^6/ul Hgb 12.5 L (14.0-18.0) g/dl Hct 38 L (42-52) % MCV 89 (80-94) fL MCH 30 (27-31) pg MCHC 33 (31-36) g/dl RDW 14 (10.5-15) % Plt Count 247 (150-450) 10^3/ul MPV 7.4 (7.4-10.4) um3 Neut % (Auto) 67.4 (38-83) % Lymph % (Auto) 14.8 L (25-47) % [place] % (Auto) 15.0 H (0-7) % Eos % (Auto) 2.2 (0-6) % Baso % (Auto) 0.6 (0-2) % Absolute Neuts (auto) 3.9 (1.5-7.7) 10^3/ul Absolute Lymphs (auto) 0.9 L (1.0-4.8) 10^3/ul Absolute Monos (auto) 0.9 H (0-0.8) 10^3/ul Absolute Eos (auto) 0.1 (0-0.6) 10^3/ul Absolute Basos (auto) 0 (0-0.2) 10^3/ul Absolute Nucleated RBC 0 10^3/ul Nucleated RBC % 0 INR (Anticoag Therapy) (0.77-1.02) APTT (26.0-36.3) seconds Sodium 139 (135-145) mmol/L Potassium 4.5 (3.5-5.0) mmol/L Chloride 106 (101-111) mmol/L Carbon Dioxide 27 (22-32) mmol/L Anion Gap 6 (2-11) mmol/L BUN 15 (6-24) mg/dL Creatinine 0.89 (0.67-1.17) mg/dL Est GFR ( Amer) 104.5 (>60) Est GFR (Non-Af Amer) 86.3 (>60) BUN/Creatinine Ratio 16.9 (8-20) Glucose 109 H (70-100) mg/dL Calcium 8.7 (8.6-10.3) mg/dL Magnesium 2.3 (1.9-2.7) mg/dL Total Bilirubin 0.40 (0.2-1.0) mg/dL AST 17 (13-39) U/L ALT 17 (7-52) U/L Alkaline Phosphatase 56 (34-104) U/L CK-MB (CK-2) 2.7 (0.6-6.3) ng/mL Myoglobin 25.6 (17.4-105.7) ng/mL Troponin I 0.00 (<0.04) ng/mL B-Natriuretic Peptide 19 ( - 100) pg/mL Total Protein 6.7 (6.4-8.9) g/dL Albumin 3.7 (3.2-5.2) g/dL Globulin 3.0 (2-4) g/dL Albumin/Globulin Ratio 1.2 (1-3) Lipase 31 (11.0-82.0) U/L 05/28/18 Range/Units Unknown WBC (3.5-10.8) 10^3/ul RBC (4.00-5.40) 10^6/ul Hgb (14.0-18.0) g/dl Hct (42-52) % MCV (80-94) fL MCH (27-31) pg MCHC (31-36) g/dl RDW (10.5-15) % Plt Count (150-450) 10^3/ul MPV (7.4-10.4) um3 Neut % (Auto) (38-83) % Lymph % (Auto) (25-47) % [place] % (Auto) (0-7) % Eos % (Auto) (0-6) % Baso % (Auto) (0-2) % Absolute Neuts (auto) (1.5-7.7) 10^3/ul Absolute Lymphs (auto) (1.0-4.8) 10^3/ul Absolute Monos (auto) (0-0.8) 10^3/ul Absolute Eos (auto) (0-0.6) 10^3/ul Absolute Basos (auto) (0-0.2) 10^3/ul Absolute Nucleated RBC 10^3/ul Nucleated RBC % INR (Anticoag Therapy) 1.04 H (0.77-1.02) APTT 28.3 (26.0-36.3) seconds Sodium (135-145) mmol/L Potassium (3.5-5.0) mmol/L Chloride (101-111) mmol/L Carbon Dioxide (22-32) mmol/L Anion Gap (2-11) mmol/L BUN (6-24) mg/dL Creatinine (0.67-1.17) mg/dL Est GFR ( Amer) (>60) Est GFR (Non-Af Amer) (>60) BUN/Creatinine Ratio (8-20) Glucose (70-100) mg/dL Calcium (8.6-10.3) mg/dL Magnesium (1.9-2.7) mg/dL Total Bilirubin (0.2-1.0) mg/dL AST (13-39) U/L ALT (7-52) U/L Alkaline Phosphatase (34-104) U/L CK-MB (CK-2) (0.6-6.3) ng/mL Myoglobin (17.4-105.7) ng/mL Troponin I (<0.04) ng/mL B-Natriuretic Peptide ( - 100) pg/mL Total Protein (6.4-8.9) g/dL Albumin (3.2-5.2) g/dL Globulin (2-4) g/dL Albumin/Globulin Ratio (1-3) Lipase (11.0-82.0) U/L Result Diagrams: 05/28/18 Unknown 05/28/18 Unknown Lab Statement: Any lab studies that have been ordered have been reviewed, and results considered in the medical decision making process. - Ultrasound No standard instances Ultrasound Interpretation: Positive (See Comments) Ultrasound Interpretation Completed By: Radiologist - Gallbladder: Enlarged echogenic liver consistent with hepatic steatosis. Previously identified mass in the dome of the right lobe of liver and hemangioma in the right lobe of liver are not well demonstrated. Roxanne is an echogenic foci in what appears to be the cystic duct and cystic duct calculi is not excluded although there is no gallbladder distention or wall thickening noted. No biliary duct dilation is noted. - EKG 1423 Cardiac Rate: NL - 73 EKG Rhythm: Sinus Rhythm ST Segment: Normal EKG Interpretation: RBBB, no ST elevations Abdominal Pain Fem Course/Dx - Course Course Of Treatment: This patient is a 63-year-old male who presents to the emergency department with a chief complaint of right upper quadrant pain with palpation to the right shoulder and right upper extremity. Patient reports that the pain has been present for the last 36 hours, and its an intermittent pain. He reports that the pain is not associated with exertion or any type of food. The pain is a pressure-like pain and he reports is approximately 2-3 out of 10. He reports mild nausea without any vomiting. Right upper quadrant ultrasound impression: Enlarged echogenic liver consistent with hepatic steatosis. Previously identified mass in the dome of the right lobe of the liver and hemangioma in the right lobe of the liver and that was demonstrated. There is an echogenic foci in what appears to be a the cystic duct and cystic duct calculi is not excluded although there is no gallbladder distention or wall thickening is noted. No biliary duct dilation is noted. Blood work without any significant abnormality. I discussed the case with Dr. Evangelista from surgery and actually he discussed the options with the patient. They have decided that the patient will be discharged home with follow-up at his office tomorrow morning for further workup and management. The patient was given 1 Percocet in the ER for pain he was given a prescription for home. He is hemodynamically stable alert and oriented 3. The patient ambulated out of the emergency department. - Diagnoses Differential Diagnosis/HQI/PQRI: ACS, AMI, Gall Bladder Disease, Pancreatitis Provider Diagnoses: Right upper quadrant abdominal pain - Provider Notifications Discussed Care Of Patient With: Jermain Schaefer Time Discussed With Above Provider: 17:36 Instructed by Provider To: Other - recommends surgical admit. Discharge - Sign-Out/Discharge Documenting (check all that apply): Patient Departure - discharge - Discharge Plan Condition: Stable Disposition: HOME Prescriptions: oxyCODONE/Acetamin 5/325 MG* [Percocet 5/325 TAB*] 1 tab PO Q6H PRN #12 tab MDD 4 PRN Reason: Pain Patient Education Materials: Abdominal Pain (ED) Referrals: Mauricio Evangelista MD [Medical Doctor] - 1 Day Additional Instructions: Return to the emergency department for any new or worsening symptoms. Follow up with Dr. Evangelista in his office tomorrow morning. - Billing Disposition and Condition Condition: STABLE Disposition: Home - Attestation Statements Document Initiated by Vanesa: Yes Documenting Scribe: Jose Sinclair Provider For Whom Vanesa is Documenting (Include Credential): Dr. Bernard Gaspar MD Scribe Attestation: Jose Ross scribed for Dr. Bernard Gaspar MD on 05/28/18 at 2115. Scribe Documentation Reviewed: Yes Provider Attestation: The documentation as recorded by the Jose salmon accurately reflects the service I personally performed and the decisions made by , Dr. Bernard Gaspar MD Consult Consult: 174 Dr. Evangelista: will see pt in the ED. 1750: Dr. Evangelista, after speaking with the patient, he recommends discharge with a follow up at his office tomorrow morning.
--- NOTE | 2018-05-28 17:48 | RAD ---
Indication: Right upper quadrant pain. Real-time sonography of the right upper quadrant was performed. The liver measures 20 cm in length. It is diffusely increased in echogenicity consistent with hepatic steatosis. Area of focal fatty sparing adjacent to the gallbladder is noted. Previously identified mass in the dome of the right lobe of liver is not well demonstrated. Additional hemangioma in the right lobe of liver is also not visualized. The gallbladder demonstrates echogenic foci in what appears to be the cystic duct. No pericholecystic fluid or wall thickening is noted. This may represent a cystic duct calculi. No evidence of sonographic Lewis's sign is noted. The common duct measures 0.3 cm. The right kidney measures 11.6 x 4.7 x 4.9 cm. No hydronephrosis is noted. The pancreas is limited in evaluation. The aorta proximally is unremarkable. IMPRESSION: Enlarged echogenic liver consistent with hepatic steatosis. Previously identified mass in the dome of the right lobe of liver and hemangioma in the right lobe of liver are not well demonstrated. There is an echogenic foci in what appears to be the cystic duct and cystic duct calculi is not excluded although there is no gallbladder distention or wall thickening is noted. No biliary duct dilatation is noted.
[2018-05-28 19:13] VITALS: BP 130/72
== END | disposition home or self-care (01) ==
LOC: ED 13:13
DX: R10.11 Right upper quadrant pain (principal); I25.10 Atherosclerotic heart disease of native coronary artery without angina pectoris; I25.2 Old myocardial infarction; Z95.810 Presence of automatic (implantable) cardiac defibrillator
CPT/HCPCS: 36415; 76705; 80053; 82553; 83690; 83735; 83874; 83880; 84484; 85025; 85610; 85730; 93005; 99282; A9270-GY

== ENCOUNTER 2018-05-29 14:30 | Day surgery (SDC) | payer BC ==
[2018-05-29] MEDS ORDERED: ceFAZolin 2 GM in NS PREMIX(*) 2 GM/100 ML BAG IVPB ONE (15:29)
[2018-05-29] MEDS ORDERED: Bupivacaine 0.25% EPI 200,000* 30 ML SDV ONE (15:40)
[2018-05-29] MEDS ORDERED: Lidocaine 2% PF * 5 ML VIAL ONE (15:41)
[2018-05-29] MEDS ORDERED: fentaNYL* 50 MCG/ML 2 ML VIAL (100 MCG VIAL) ONE ×2 (15:41→17:14)
[2018-05-29] MEDS ORDERED: Midazolam* 1 MG/ML 5 ML VIAL (5 MG) ONE (15:41)
[2018-05-29] MEDS ORDERED: Ketorolac INJ* 30 MG/ML 1 ML VIAL ONE (15:41)
[2018-05-29] MEDS ORDERED: KETAMINE HCL* 50 MG/ML 10 ML VIAL ONE (15:41)
[2018-05-29] MEDS ORDERED: Phenylephrine INJ* 10 MG/ML 1 ML VIAL (10 MG) ONE (15:41)
[2018-05-29] MEDS ORDERED: Propofol* 10 MG/ML 20 ML BTL IV PUSH ONE (15:41)
[2018-05-29] MEDS ORDERED: Ondansetron INJ* 2 MG/ML VIAL ONE (15:41)
[2018-05-29] MEDS ORDERED: Dexamethasone IV* 4 MG/ML 1 ML (4 MG) ONE (15:41)
[2018-05-29] MEDS ORDERED: Cisatracurium* 2 MG/ML MDV 5 ML ONE (15:41)
[2018-05-29] MEDS ORDERED: Famotidine IV* 10 MG/ML 2 ML (20 mg) ONE (15:48)
[2018-05-29] MEDS ORDERED: Bupivacaine 0.25% SDV PF* 10 ML VIAL INJ ONE (15:59)
[2018-05-29] MEDS ORDERED: EPHEDrine (Pressors)* 50 MG/ML VIAL ONE (16:44)
[2018-05-29] MEDS ORDERED: Naloxone* 0.4 MG/ML 1 ML VIAL IV PRN (18:13)
[2018-05-29] MEDS ORDERED: fentaNYL* 50 MCG/ML 2 ML VIAL (100 MCG VIAL) IV PRN (18:13)
[2018-05-29] MEDS ORDERED: Ondansetron INJ* 2 MG/ML VIAL IV PRN (18:13)
[2018-05-29 21:23] VITALS: BP 127/71
--- NOTE | 2018-05-30 11:04 | OP ---
CC: Dr. Evangelista; Dr. Salomon; Dr. Cordero OPERATIVE REPORT: DATE OF OPERATION: 05/29/18 DATE OF : 55 SURGEON: Mauricio Evangelista MD CADDIE: Dr. Leal. ANESTHESIOLOGIST: Dr. Dempsey. ANESTHESIA: General anesthetic, local infiltration. PRE-OP DIAGNOSIS: Chronic biliary colic. POST-OP DIAGNOSIS: Chronic biliary colic. OPERATIVE PROCEDURE: Laparoscopic cholecystectomy. DESCRIPTION OF PROCEDURE: The patient was supine on the operating table after adequate general anest hetic, compression stockings, Natalie-Hugger warmer, and intravenous antibiotics. A magnet was placed o viki the defibrillation and the abdomen was clipped and prepped with antiseptic, draped in a sterile f ashion. Local infiltrative anesthesia was administered. Small umbilical incision was created. There was a small umbilical hernia identified. The preperitoneal fat was dissected free and the hernia de fect was readily identified and the cannula was placed through the site. The abdomen was insufflated with carbon dioxide and then additional cannulae, 12 mm subxiphoid and 5 mm right upper quadrant and right anterior axillary lines were placed with small stab wounds under direct vision. The gallbladd er had some adhesions. It was little inflamed at its lower portion but for the most part, it was in good condition. The cystic duct and cystic artery were readily identified. Good view of safety was accomplished and the duct and artery were divided. There was an anterior and posterior artery. Thes e were both clipped and divided. The gallbladder was taken off the liver bed without any spillage. Scissors cautery was utilized. It was brought out through the subxiphoid port without difficulty. T he operative field was irrigated with warm saline solution. Free fluid was suctioned out. Hemostasi s was excellent. Everything was in good condition. The cannulae removed. Pneumoperitoneum allowed t o escape. Fascia of the 2 larger incisions was closed with 0 Vicryl. In essence, at the umbilicus, this was a small umbilical hernia repair. The skin was closed with 5-0 Vicryl in all cases followed by Steri-Strips. He was awakened, extubated, and brought to Recovery in good condition. No complica tions. No drains. Pathologic specimen was gallbladder. Sponge and instrument counts were correct. E stimated blood loss less than 30 mL. [id number]/[facility] #: [id number]
== END 2018-05-29 21:15 | disposition home or self-care (01) ==
LOC: OR 14:30
PROVIDERS: ATTEND Surgery
DX: K81.1 Chronic cholecystitis (principal); I48.91 Unspecified atrial fibrillation; I25.2 Old myocardial infarction; I47.2 Ventricular tachycardia; Z95.810 Presence of automatic (implantable) cardiac defibrillator
CPT/HCPCS: 88304; J0690; J1100; J1885; J2250; J2405; J2704; J3010; J3490

== ENCOUNTER 2018-06-07 08:45 | Emergency (ER) | payer BC ==
--- NOTE | 2018-06-07 09:35 | RAD ---
HISTORY: left calf pain COMPARISONS: None relevant TECHNIQUE: Multiple transverse and longitudinal ultrasound images were obtained of the left lower extremity from the level of the common femoral vein inferiorly through to the infrapopliteal veins using grayscale, color Doppler, and spectral Doppler imaging with and without compression and with augmentation. Comparison images were obtained of the contralateral common femoral vein. FINDINGS: VEINS: There is occlusive thrombus noted within the superior extent of the left femoral vein extending inferiorly through the popliteal veins into the calf veins. The remainder of the venous system of the left lower extremity is compressible throughout its course, with normal flow on color Doppler imaging and normal response to augmentation on spectral Doppler imaging. SOFT TISSUES: Unremarkable. OTHER FINDINGS: None. IMPRESSION: OCCLUSIVE THROMBUS NOTED FROM THE LEFT FEMORAL VEIN INFERIORLY THROUGH THE CALF VEINS
--- OUTSIDE RECORDS SUMMARY | 2018-06-07 09:51 | XMS REPORT ---
:1955 External Reference #:[id number] Author Organization [employer] Address [address] [facility] [place] [address] Phone [phone] Care Team Providers Name Role Phone Jeremy Salomon MD Primary Care Physician Unavailable Payers Type Date Identification Numbers Payment Provider Subscriber Commercial Effective: Policy Number: BS Facets Shankar Nnuez 2017 [id number] PayID: [id number] [address] [address] [place] [address] Problems Date Description Provider Status Onset: 02/03/2013 Overweight Gina Mchugh M.D., FACP Onset: 02/16/2015 Anti-nuclear factor positive Gina Mchugh M.D., FACP Onset: 06/22/2015 Peripheral venous [...] Takotsubo cardiomyopathy Mckay Argueta M.D., FACC, Active [facility] Onset: 09/19/2016 Other hypertrophic cardiomyopathy Mckay Argueta M.D., [facility], Active [facility] Onset: 12/26/2016 Automatic implantable cardiac Mckay Argueta M.D., [facility], Active defibrillator in situ [facility] Note: MRI-safe Onset: 02/03/2013 Atrial fibrillation Jeremy Salomon M.D.,FACP Inactive Inactive: 06/22/2015 Onset: 02/03/2013 Ankle ulcer Jeremy Salomon M.D.,FACP Inactive Inactive: 01/16/2017 Onset: 10/24/2016 Premature beats Mckay Argueta M.D., [facility], [facility] Inactive Inactive: 01/16/2017 Family History Date Family Member(s) Problem(s) Comments Onset: (age 50 Father Atrial Fibrillation Years) : (age 90 Father due to Natural Years) Causes Onset: (age 75 Father CABG Years) : (age 92 Mother due to Natural Years) Causes Mother Congestive Heart Failure (CHF) First Son cerebral palsy lives in retirement Second Son Autism Spectrum D/O Second Son [...] Form Strength Qnty SIG Indications Ordering Provider Atorvastatin Active Tablets 10mg 90tabs take 1 Mckay Calcium 017 tablet by Stefek, mouth at M.D., bedtime [facility], [facility] Aspirin Adult Active Tablets DR 81mg 30tabs take one Other Low Strength 017 tablet by Ordering mouth Provider daily. Toprol XL Active Tablets ER 25mg 270tab 2 tabs in Mckay 017 24HR s the in Stefek, the M.D., morning FACC, and 1 tab [facility] in the at night Prednisone Hx Tablets 50mg 7tabs Take one L27.0 Jeremy 018 tablet by Jelly Salomon, mouth for M.DLiana,FACP 1 week. Atorvastatin Hx Tablets 40mg 30tabs 1 by Jereym Calcium 017 - mouth Jelly Salomon, every day MCheo,FACP 017 Brilinta Hx Tablets 90mg 60tabs 1 [...] Code Status Date Vaccine Reaction Lot # 41707 Given 01/16/2017 Zoster (Zostavax) no reaction, pt [id number] tolerated well. 30222 Given 09/13/2016 Influenza Virus Vaccine, Quadrivalent, [place] [address] Given 06/16/2015 Flu Vaccine Split Virus Preservative Free For Indiv 3Yr Older 41085 Given 02/03/2013 Tdap - [id number] Tetanus/Diptheria/Acellular Pertussis 66381 Given 07/19/2012 Influenza Virus 3Yrs & Over Vital Signs Date Vital Result Comment 06/04/2018 Heart Rate 74 /min Respiratory Rate 16 /min Body Temperature 97.8 F 05/29/2018 Height 72.25 inches 6'0.25" Weight 228.00 lb Heart Rate 60 /min BP Systolic 118 mmHg BP Diastolic 82 mmHg Respiratory Rate 18 /min Body Temperature 98.1 F BMI (Body Mass Index) 30.7 kg/m2 04/29/2018 Height 72.25 inches 6'0.25" Weight 231.00 [...] Test Date Test Result H/L Range Note Laboratory test 05/29/2018 Surgical Pathology SEE RESULT BELOW 1 finding Inr/Protime 05/28/2018 Inr 1.04 High 0.77-1.02 Laboratory test 05/28/2018 Partial Thrombo 28.3 seconds 26.0-36.3 finding Time PTT CBC Auto Diff 05/28/2018 White Blood Count 5.8 10^3/uL 3.5-10.8 Red Blood Count 4.24 10^6/uL 4.00-5.40 Hemoglobin 12.5 g/dL Low 14.0-18.0 Hematocrit 38 % Low 42-52 Mean Corpuscular Volume 89 fL 80-94 Mean Corpuscular Hemoglobin 30 pg 27-31 Mean Corpuscular HGB Conc 33 g/dL 31-36 Red Cell Distribution Width 14 % 10.5-15 Platelet Count 247 10^3/uL 150-450 Mean Platelet Volume 7.4 um3 7.4-10.4 Abs Neutrophils 3.9 10^3/uL 1.5-7.7 Abs Lymphocytes 0.9 10^3/uL Low 1.0-4.8 Abs Monocytes 0.9 10^3/uL High 0-0.8 Abs Eosinophils 0.1 10^3/uL 0-0.6 Abs Basophils 0 10^3/uL 0-0.2 Abs Nucleated RBC 0 10^3/uL Granulocyte % 67.4 % 38-83 Lymphocyte % 14.8 % Low 25-47 Monocyte % 15.0 % High 0-7 Eosinophil % 2.2 % 0-6 Basophil % 0.6 % 0-2 Nucleated Red Blood Cells % 0 Laboratory test finding 05/28/2018 B-Type Natriuretic Peptide 19 pg/mL 2 BNP Comp Metabolic Panel 05/28/2018 Sodium 139 mmol/L 135-145 Potassium 4.5 mmol/L 3.5-5.0 Chloride 106 mmol/L 101-111 Co2 Carbon Dioxide 27 mmol/L 22-32 Anion Gap 6 mmol/L 2-11 Glucose 109 mg/dL High 70-100 Blood Urea Nitrogen 15 mg/dL 6-24 Creatinine 0.89 mg/dL 0.67-1.17 BUN/Creatinine Ratio 16.9 8-20 Calcium 8.7 mg/dL 8.6-10.3 Total Protein 6.7 g/dL 6.4-8.9 Albumin 3.7 g/dL 3.2-5.2 Globulin 3.0 g/dL 2-4 Albumin/Globulin Ratio 1.2 1-3 Total Bilirubin 0.40 mg/dL 0.2-1.0 Alkaline Phosphatase 56 U/L 34-104 Alt 17 U/L 7-52 Ast 17 U/L 13-39 Egfr Non- 86.3 >60 Egfr 104.5 >60 3 Laboratory test finding 05/28/2018 Troponin-I (TnI) 0.00 ng/mL <0.04 Magnesium 2.3 mg/dL 1.9-2.7 Lipase 31 U/L 11.0-82.0 Myoglobin 25.6 ng/mL 17.4-105.7 CKMB 05/28/2018 CKMB ng/mL 2.7 ng/mL 0.6-6.3 Lipid Profile (Trig/Chol/HDL) 01/30/2018 Triglycerides 107 mg/dL 4 Cholesterol 128 mg/dL 5 HDL Cholesterol 47.2 mg/dL 6 LDL Cholesterol 59 mg/dL 7 Laboratory test finding 01/30/2018 Alt (SGPT) 27 U/L 7-52 Ast (Sgot) 25 U/L 13-39 Laboratory test finding 11/29/2016 Hepatitis C Antibody [...] 0-2 Nucleated Red Blood Cells % 0 Comp Metabolic Panel 11/29/2016 Sodium 138 mmol/L [...] Egfr Non- 84.7 >60 Egfr 108.9 >60 8 Lipid Profile (Trig/Chol/HDL) 11/29/2016 Triglycerides 130 mg/dL 9 Cholesterol 89 mg/dL 10 HDL Cholesterol 40.7 mg/dL 11 LDL Cholesterol 22 mg/dL 12 Creatinine 01/17/2016 Creatinine 0.99 mg/dL 0.67-1.17 Egfr Non- 76.9 >60 Egfr 98.8 >60 13 Lipid Profile (Trig/Chol/HDL) 06/19/2015 Triglycerides 128 mg/dL 14, 15 Cholesterol 175 mg/dL 14, 16 HDL Cholesterol 43.1 mg/dL 14, 17 LDL Cholesterol 106 mg/dL 14, 18 Laboratory test finding 06/19/2015 Glucose 94 mg/dL 70-100 14, 19 Laboratory test finding 01/18/2015 SS-B/La Antibody <0.2 U 20 Anti Ssa/Ro Antibody <0.2 U 21 Anti Double Stranded Dna Negative Negative Hetal Screen Negative Negative 22 Urinalysis Profile 01/18/2015 Urine Color Yellow Urine Appearance Clear Urine Specific [place] 1.025 1.010-1.030 Urine pH 6.0 5-9 Urine Urobilinogen Negative Negative Urine Ketones Negative Negative Urine Protein Negative Negative Urine Leukocytes Negative Negative Urine Blood Negative Negative * * Negative 23 Urine Nitrite Negative Negative Urine Bilirubin Negative Negative Urine Glucose Negative Negative Laboratory test finding 01/05/2015 Uric Acid 5.2 mg/dL 4.4-7.6 Rheumatoid Factor <15 IU/mL <15 24 Erythrocyte Sed Rate 14 mm/Hr 0-20 Neris Hep-2 01/05/2015 Neris Pattern Centromere Negative Neris Titer 1:640 <1:80 Neris Reviewed By MD Ryan Foote <SEE NOTE> 25 Laboratory test 01/05/2015 Neris (Anti-Nuclear AB) Reflexed [...] Egfr Non- 93.5 >60 Egfr 120.3 >60 26 CBC Auto Diff 01/05/2015 White Blood Count [...] finding 02/04/2013 Vitamin B12 208 pg/mL 180-914 27 Mumps Igg 02/04/2013 Mumps Virus IgG Antibody Positive Negative 28 Mumps IgG Antibody Index 8.45 0.00-0.89 29 Laboratory test finding 02/04/2013 Rubella IgG Antibody Positive Negative 30 Rubeola (Measles) IgG Antibody Positive Negative 31 Varicella-Zoster IgG Antibody Positive Negative 32 Manual Differential 02/04/2013 Neutrophil % 43 % 38-83 Lymphocytes % 46 % 25-47 Monocytes % 9 % 0-13 Eosinophils % 2 % 0-6 RBC Morphology Normal Normal Laboratory test finding 02/04/2013 TSH (Thyroid Stimulating 2.88 miu/mL 0.34-5.60 33 Horm) CBC Auto Diff 02/04/2013 White Blood [...] test finding 02/04/2013 Glucose 90 mg/dL 70-100 34 Lipid Profile (Trig/Chol/HDL) 02/04/2013 Triglycerides 233 mg/dL High 40- 200 Cholesterol 189 mg/dL Less than 200 HDL Cholesterol 36 mg/dL Low 40-60 35 Cholesterol/HDL Ratio 5.3 Average High 1-4.44 LDL Cholesterol 106.4 mg/dL High Less Than 100 36 1 SEE RESULT BELOW Name: SHANKAR NUNEZ Tom : [address]: Mauricio Evangelista MD Acct: [id number] Unit: [id number] AGE: 63 Location: OR Re05/29/18 SEX: M Status: SALVADOR ALVAREZ SPEC: [id number] WILNER: 05/29/18- [facility] DR: Mauricio Evangelista MD REQ: [id number] RECD: 05/29/18 STATUS: SOUT _ ORDERED: LEVEL 3 FINAL DIAGNOSIS Gallbladder, cholecystectomy: -- Chronic cholecystitis. -- Benign carla-cystic duct cyst. PRE-OPERATIVE DIAGNOSIS Cholecystitis GROSS DESCRIPTION The specimen is received in formalin labeled, Gallbladder and Contents, and consists of an 8.5 x 3.4 x 3.2 cm intact gallbladder. Adjacent to the cystic duct there is a 1.3 x 0.9 x 0.6 cm unilocular cyst. The remaining serosa is glistening smooth green- yellow. The lumen contains abundant green viscid bile. Choleliths are not identified within the lumen or the container. The mucosa is reticulated green and the wall thickness averages 0.1 cm. Vice President Quality Improvement sections, one cassette. Signed by and Reported on: Cee Duncan MD 06/02/18 1727 END OF REPORT DEPARTMENT OF PATHOLOGY, [address] [place] [address] Ryan Clark M.D. Director [facility] # [id number] 2 >100 to <200 pg/mL: likely compensated congestive heart failure (CHF) 200 to 400 pg/mL: likely moderate CHF >400 pg/mL: likely moderate to severe CHF 3 Because ethnic data is not always readily [...] 15-29 5 Kidney failure <15 (or dialysis) 4 Desirable: <150 Borderline High: 150-199 High: 200-499 Very High: >500 5 Desirable: <200 Borderline High: 200-239 High: >239 6 Low: <40 Desirable: 40-60 High: >60 7 Desirable: <100 Near Optimal: 100-129 Borderline High: 130-159 High: 160-189 Very High: >189 8 Because ethnic data is not always readily [...] 15-29 5 Kidney failure <15 (or dialysis) 9 Desirable <150 Borderline high 150-199 High 200-499 Very High >500 10 Desirable <200 Borderline high 200-239 High >239 11 Low <40 Desirable: 40-60 High: >60 12 Desirable: <100 mg/dL Near Optimal: 100-129 mg/dL Borderline High: 130-159 mg/dL High: 160-189 mg/dL Very High: >189 mg/dL 13 Because ethnic data is not always readily [...] 15-29 5 Kidney failure <15 (or dialysis) 14 FASTING 15 Desirable <150 Borderline high 150-199 High 200-499 Very High >500 16 Desirable <200 Borderline high 200-239 High >239 17 Low <40 Desirable: 40-60 High: >60 18 Desirable: <100 mg/dL Near Optimal: 100-129 mg/dL Borderline High: 130-159 mg/dL High: 160-189 mg/dL Very High: >189 mg/dL 19 FASTING 20 REFERENCE VALUE <1.0 (Negative) Test Performed by: [address] [address] Emergency Management System Director: Jeb Doan II, M.D., Ph.D. 21 REFERENCE VALUE <1.0 (Negative) Test Performed by: [place] [address] Emergency Management System Director: Jeb Doan II, M.D., Ph.D. 22 The above HETAL screen is designed for the detection of antibodies to extractable nuclear antigen (HETAL) in human serum. It is a combination test for the detection of antibodies to MATERIAL CONTROL MANAGER, Sm, SS-A (Ro), and SS-B (La) nuclear antigens. 23 *Ascorbic acid is present which may interfere with detection of blood. 24 Test Performed by: [place] [address] Emergency Management System Director: Jeb Doan II, M.D., Ph.D. 25 Ryan Clark 26 Because ethnic data is not always readily [...] 15-29 5 Kidney failure <15 (or dialysis) 27 PT IS FASTING 28 Results suggest response to immunization or prior exposure to the virus. 29 Test Performed by: [place] [address] Emergency Management System Director: Kevin Gupta III, M.D. 30 Test Performed by: [place] [address] Emergency Management System Director: Kevin Gupta III, M.D. 31 Test Performed by: [place] [address] Emergency Management System Director: Kevin Gupta III, M.D. 32 Test Performed by: [address] [address] Emergency Management System Director: Kevin Gupta III, M.D. 33 PT IS FASTING 34 PT IS FASTING 35 HDL Interpretation: Undesirable: High Risk: Less than 40 mg/dL Desirable: Low Risk: Greater than 60 mg/dL 36 LDL Interpretation: Low Risk Optimal Level: LDL Less than 100 mg/dL Near or Above Optimal: LDL 100-129 mg/dL Borderline High Risk: LDL 130-159 mg/dL High Risk: LDL 160-189 mg/dL Very High Risk: LDL Greater than 189 mg/dL Procedures Date CPT Code Description Status 05/29/2018 32481 Laparoscopy Cholecystectomy Completed 05/29/2018 13276 Laparoscopy Cholecystectomy Completed 03/12/2018 43729 Interrogation Implant Cardiovasc Monitor System Incl Completed Analysis Int 03/12/2018 13360 Interrogation Implant Cardiovasc Monitor System Incl Completed Analysis Int 03/12/2018 34450 Icd eval w/iterative adjment single lead Icd Completed 03/12/2018 35520 Icd eval w/iterative adjment single lead Icd Completed 10/09/2017 94688 Interrogation Implant Cardiovasc Monitor System Incl Completed Analysis Int 10/09/2017 39367 Interrogation Implant Cardiovasc Monitor System Incl Completed Analysis Int 10/09/2017 79830 Icd Eval W/Iterative Adjustmnt Single Lead Icd Completed 10/09/2017 12033 Icd Eval W/Iterative Adjustmnt Single Lead Icd Completed 05/01/2017 46074 Interrogation Implant Cardiovasc Monitor System Incl Completed Analysis Int 05/01/2017 50341 Icd eval w/iterative adjment single lead Icd Completed 03/18/2017 53802 EKG Tracing & Interpretation Completed 01/02/2017 08776 Icd eval w/iterative adjment single lead Icd Completed 12/26/2016 16557 EKG Tracing & Interpretation Completed 11/07/2016 39119 Treadmill Interp/Report Only Completed 11/07/2016 59099 Stress Test Supervsn W/Out I/R Completed 10/26/2016 28239 Holter Monitor Review (24 hr)dr review & interp only Completed 10/22/2016 31031 Treadmill Interp/Report Only Completed 10/22/2016 42276 Stress Test Supervsn W/Out I/R Completed 09/19/2016 94824 EKG Tracing & Interpretation Completed 09/12/2016 59910 EKG, Interpretation Only Completed 09/11/2016 26682 ECHO Transthorasic Realtime 2D W Doppler & Color Flow Completed Hosp 09/11/2016 30569 EKG, Interpretation Only Completed 09/10/2016 59826 Left Heart Cath. Incl S/I Coronaries, Angio S/I V Gram Completed If Done 09/10/2016 72811 EKG, Interpretation Only Completed 06/22/2015 Colonoscopy Completed Encounters Type Date Location Provider CPT E/M Dx Office Visit 05/29/2018 [facility] Evangel[facility], 30838 K80.10 11:00a Adriana M.DLiana Office Visit 04/29/2018 [facility] Internal Medicine Erma Marker, 17044 L27.0 2:30p - [address] RPA-C Office Visit 03/18/2017 [facility] Deb Argueta M.D., 17970 I48.0 2:40p [facility] AT [facility] I47.2 I42.2 Z95.810 Z01.810 H02.409 Office Visit 01/16/2017 10:30a [facility] Internal Jeremy Salomon, 74327 Z00.01 Medicine - [place] Jaime Guillen,[facility] I47.2 M72.2 T44.7x5A Z23 Office Visit 12/26/2016 1:20p [facility] Deb Argueta M.D., 34133 Z95.810 [facility] AT [facility] I47.2 I42.2 Office Visit 10/24/2016 3:20p [facility] Deb Argueta M.D., 93188 I51.81 [facility] AT [facility], [facility] I49.3 Office Visit 09/19/2016 8:20a [facility] Deb Argueta M.D., 04722 I51.81 [facility] AT [facility] I42.2 Office Visit 09/18/2016 4:00p [facility] Internal Jeremy Salomon, 67377 I21.02 Medicine - [place] Jaime Guillen,[facility] Z11.59 Office Visit 09/13/2016 12:03p [facility] Deb Argueta M.D., 71641 I21.4 [facility] AT [facility], [facility] Office Visit 09/12/2016 11:45a [facility] Of Mckay Argueta M.D., 04801 I21.4 [facility] AT [facility], [facility] Office Visit 09/11/2016 11:44a [facility] Of Mckay Argueta M.D., 33614 I21.4 [facility] AT [facility] Office Visit 09/10/2016 3:49p [facility] Mckay Argueta M.D., 90470 I21.02 Supervisor [employer] AT [facility] Office Visit 06/22/2015 3:00p [facility] Internal Medicine Jeremy Salomon, 65315 Z00.01 - [place] Jaime Guillen,FACP I87.2 E66.3 Z11.59 N39.3 Office Visit 02/16/2015 4:20p [facility] Internal Jeremy Salomon, 67435 459.81 Medicine - [place] Jaime Guillen,FACP V76.51 Office Visit 01/05/2015 10:40a [facility] Internal Medicine Jamaal Aguilar M.D. [address]19.[address] - [address] Office Visit 02/03/2013 1:00p [facility] Internal Medicine Jeremy Salomon, 29321 V70.0 - Terrie Guillen,FACP 707.13 278.02 V76.51 427.31 780.79 V06.1 Plan of Care Future Appointment(s):06/18/2018 2:40 pm - Virginia Cordero M.D. at [facility]06/04/2018 - Fredy Chirinos, PAK80.10 Calculus of gallbladder w chronic cholecyst w/o obstruction
--- OUTSIDE RECORDS SUMMARY | 2018-06-07 09:51 | XMS REPORT ---
:1955 External Reference #:[id number] Author Organization [facility] Address [address] [place] [address] Phone [phone] Care Team Providers Name Role Phone Jeremy Salomon MD Primary Care Physician Unavailable Payers Type Date Identification Numbers Payment Provider Subscriber Commercial Effective: Policy Number: BS Facets Shankar Nunez 2017 [id number] PayID: [id number] [address] [address] [place] [address] Problems Date Description Provider Status Onset: 02/03/2013 [...] Takotsubo cardiomyopathy Mckay Argueta M.D., FACC, Active [facility] Onset: 09/19/2016 Other hypertrophic cardiomyopathy Mckay Argueta M.D., [facility], Active [facility] Onset: 12/26/2016 Automatic implantable cardiac Mckya Argueta M.D., [facility], Active defibrillator in situ [facility] Note: MRI-safe Onset: 02/03/2013 Atrial fibrillation Jeremy Salomon M.D.,FACP Inactive Inactive: 06/22/2015 Onset: 02/03/2013 Ankle ulcer Jeremy Salomon M.D.,FACP Inactive Inactive: 01/16/2017 Onset: 10/24/2016 Premature beats Mckay Argueta M.D., [facility], [facility] In[facility] Inactive: 01/16/2017 Family History Date Family Member(s) Problem(s) Comments Onset: (age 50 Father Atrial Fibrillation Years) : (age 90 Father due to Natural Years) Causes Onset: (age 75 Father CABG Years) : (age 92 Mother due to Natural Years) Causes Mother Congestive Heart Failure (CHF) First Son cerebral palsy lives in [facility] Second Son Autism Spectrum D/O Second Son [...] tablet by Stefek, mouth at M.D., bedtime [facility], [facility] Aspirin Adult Active Tablets DR [...] 018 tablet by Jelly Salomon, mouth for M.Jelly,FACP 1 week. Atorvastatin Hx Tablets 40mg 30tabs 1 by Jeremy Calcium 017 - mouth Jelly Salomon, every day Wilmer,FACP 017 Brilinta Hx Tablets 90mg 60tabs 1 [...] Code Status Date Vaccine Reaction Lot # [id number] Given 01/16/2017 Zoster (Zostavax) no reaction, pt [id number] tolerated well. 53531 Given 09/13/2016 Influenza Virus Vaccine, Quadrivalent, Split Virus, [place] Use 10546 Given 06/16/2015 Flu Vaccine Split Virus Preservative Free For Indiv 3Yr Older 48943 Given 02/03/2013 Tdap - [id number] Tetanus/Diptheria/Acellular Pertussis 50732 Given 07/19/2012 Influenza Virus 3Yrs & Over Vital Signs Date Vital Result Comment 05/29/2018 Height 72.25 inches 6'0.25" Weight 228.00 [...] Test Date Test Result H/L Range Note Inr/Protime 05/28/2018 Inr 1.04 High 0.77-1.02 Laboratory [...] finding 05/28/2018 B-Type Natriuretic Peptide 19 pg/mL 1 BNP Comp Metabolic Panel 05/28/2018 Sodium 139 [...] Egfr Non- 86.3 >60 Egfr 104.5 >60 2 Laboratory test finding 05/28/2018 Troponin-I (TnI) 0.00 ng/mL <0.04 Magnesium 2.3 mg/dL 1.9-2.7 Lipase 31 U/L 11.0-82.0 Myoglobin 25.6 ng/mL 17.4-105.7 CKMB 05/28/2018 CKMB ng/mL 2.7 ng/mL 0.6-6.3 Lipid Profile (Trig/Chol/HDL) 01/30/2018 Triglycerides 107 mg/dL 3 Cholesterol 128 mg/dL 4 HDL Cholesterol 47.2 mg/dL 5 LDL Cholesterol 59 mg/dL 6 Laboratory test finding 01/30/2018 Alt (SGPT) 27 [...] Egfr Non- 84.7 >60 Egfr 108.9 >60 7 Lipid Profile (Trig/Chol/HDL) 11/29/2016 Triglycerides 130 mg/dL 8 Cholesterol 89 mg/dL 9 HDL Cholesterol 40.7 mg/dL 10 LDL Cholesterol 22 mg/dL 11 Creatinine 01/17/2016 Creatinine 0.99 mg/dL 0.67-1.17 Egfr Non- 76.9 >60 Egfr 98.8 >60 12 Lipid Profile (Trig/Chol/HDL) 06/19/2015 Triglycerides 128 mg/dL 13, 14 Cholesterol 175 mg/dL 13, 15 HDL Cholesterol 43.1 mg/dL 13, 16 LDL Cholesterol 106 mg/dL 13, 17 Laboratory test finding 06/19/2015 Glucose 94 mg/dL 70-100 13, 18 Laboratory test finding 01/18/2015 SS-B/La Antibody <0.2 U 19 Anti Ssa/Ro Antibody <0.2 U 20 Anti Double Stranded Dna Negative Negative Hetal Screen Negative Negative 21 Urinalysis Profile 01/18/2015 Urine Color Yellow Urine Appearance Clear Urine Specific Ellerbe 1.025 1.010-1.030 Urine pH 6.0 5-9 Urine Urobilinogen Negative Negative Urine Ketones Negative Negative Urine Protein Negative Negative Urine Leukocytes Negative Negative Urine Blood Negative Negative * * Negative 22 Urine Nitrite Negative Negative Urine Bilirubin Negative Negative Urine Glucose Negative Negative Laboratory test finding 01/05/2015 Uric Acid 5.2 mg/dL 4.4-7.6 Rheumatoid Factor <15 IU/mL <15 23 Erythrocyte Sed Rate 14 mm/Hr 0-20 Neris Hep-2 01/05/2015 Neris Pattern Centromere Negative Neris Titer 1:640 <1:80 Neris Reviewed By MD Ryan Foote <SEE NOTE> 24 Laboratory test 01/05/2015 Neris (Anti-Nuclear AB) Reflexed [...] Egfr Non- 93.5 >60 Egfr 120.3 >60 25 CBC Auto Diff 01/05/2015 White Blood Count [...] finding 02/04/2013 Vitamin B12 208 pg/mL 180-914 26 Mumps Igg 02/04/2013 Mumps Virus IgG Antibody Positive Negative 27 Mumps IgG Antibody Index 8.45 0.00-0.89 28 Laboratory test finding 02/04/2013 Rubella IgG Antibody Positive Negative 29 Rubeola (Measles) IgG Antibody Positive Negative 30 Varicella-Zoster IgG Antibody Positive Negative 31 Manual Differential 02/04/2013 Neutrophil % 43 % 38-83 Lymphocytes % 46 % 25-47 Monocytes % 9 % 0-13 Eosinophils % 2 % 0-6 RBC Morphology Normal Normal Laboratory test finding 02/04/2013 TSH (Thyroid Stimulating 2.88 miu/mL 0.34-5.60 32 Horm) CBC Auto Diff 02/04/2013 White Blood [...] test finding 02/04/2013 Glucose 90 mg/dL 70-100 33 Lipid Profile (Trig/Chol/HDL) 02/04/2013 Triglycerides 233 mg/dL High 40- 200 Cholesterol 189 mg/dL Less than 200 HDL Cholesterol 36 mg/dL Low 40-60 34 Cholesterol/HDL Ratio 5.3 Average High 1-4.44 LDL Cholesterol 106.4 mg/dL High Less Than 100 35 1 >100 to <200 pg/mL: likely compensated congestive heart failure (CHF) 200 to 400 pg/mL: likely moderate CHF >400 pg/mL: likely moderate to severe CHF 2 Because ethnic data is not always readily [...] 15-29 5 Kidney failure <15 (or dialysis) 3 Desirable: <150 Borderline High: 150-199 High: 200-499 Very High: >500 4 Desirable: <200 Borderline High: 200-239 High: >239 5 Low: <40 Desirable: 40-60 High: >60 6 Desirable: <100 Near Optimal: 100-129 Borderline High: 130-159 High: 160-189 Very High: >189 7 Because ethnic data is not always readily [...] 15-29 5 Kidney failure <15 (or dialysis) 8 Desirable <150 Borderline high 150-199 High 200-499 Very High >500 9 Desirable <200 Borderline high 200-239 High >239 10 Low <40 Desirable: 40-60 High: >60 11 Desirable: <100 mg/dL Near Optimal: 100-129 mg/dL Borderline High: 130-159 mg/dL High: 160-189 mg/dL Very High: >189 mg/dL 12 Because ethnic data is not always readily [...] 15-29 5 Kidney failure <15 (or dialysis) 13 FASTING 14 Desirable <150 Borderline high 150-199 High 200-499 Very High >500 15 Desirable <200 Borderline high 200-239 High >239 16 Low <40 Desirable: 40-60 High: >60 17 Desirable: <100 mg/dL Near Optimal: 100-129 mg/dL Borderline High: 130-159 mg/dL High: 160-189 mg/dL Very High: >189 mg/dL 18 FASTING 19 REFERENCE VALUE <1.0 (Negative) Test Performed by: [place] [address] Rod Finisher: Jeb Doan II, M.D., Ph.D. 20 REFERENCE VALUE <1.0 (Negative) Test Performed by: [place] [address] Rod Finisher: Jeb Doan II, M.D., Ph.D. 21 The above HETAL screen is designed for the detection of antibodies to extractable nuclear antigen (HETAL) in human serum. It is a combination test for the detection of antibodies to CHIEF WHEELAGE CLERK, Sm, SS-A (Ro), and SS-B (La) nuclear antigens. 22 *Ascorbic acid is present which may interfere with detection of blood. 23 Test Performed by: [place] [address] Rod Finisher: Jeb Doan II, M.D., Ph.D. 24 Ryan Clark 25 Because ethnic data is not always readily [...] 15-29 5 Kidney failure <15 (or dialysis) 26 PT IS FASTING 27 Results suggest response to immunization or prior exposure to the virus. 28 Test Performed by: [place] [address] Rod Finisher: Kevin Gupta III, M.D. 29 Test Performed by: [place] [address] Rod Finisher: Kevin Gupta III, M.D. 30 Test Performed by: [place] [address] Rod Finisher: Kevin Gupta III, M.D. 31 Test Performed by: [place] [address] Rod Finisher: Kevin Gupta III, M.D. 32 PT IS FASTING 33 PT IS FASTING 34 HDL Interpretation: Undesirable: High Risk: Less than 40 mg/dL Desirable: Low Risk: Greater than 60 mg/dL 35 LDL Interpretation: Low Risk Optimal Level: LDL Less than 100 mg/dL Near or Above Optimal: LDL 100-129 mg/dL Borderline High Risk: LDL 130-159 mg/dL High Risk: LDL 160-189 mg/dL Very High Risk: LDL Greater than 189 mg/dL Procedures Date CPT Code Description Status 03/12/2018 60548 Interrogation Implant Cardiovasc Monitor System Incl Completed Analysis Int 03/12/2018 00127 Interrogation Implant Cardiovasc Monitor System Incl Completed Analysis Int 03/12/2018 76312 Icd eval w/iterative adjment single lead Icd Completed 03/12/2018 51790 Icd eval w/iterative adjment single lead Icd Completed 10/09/2017 54270 Interrogation Implant Cardiovasc Monitor System Incl Completed Analysis Int 10/09/2017 02561 Interrogation Implant Cardiovasc Monitor System Incl Completed Analysis Int 10/09/2017 56158 Icd Eval W/Iterative Adjustmnt Single Lead Icd Completed 10/09/2017 11244 Icd Eval W/Iterative Adjustmnt Single Lead Icd Completed 05/01/2017 67904 Interrogation Implant Cardiovasc Monitor System Incl Completed Analysis Int 05/01/2017 07170 Icd eval w/iterative adjment single lead Icd Completed 03/18/2017 73420 EKG Tracing & Interpretation Completed 01/02/2017 41705 Icd eval w/iterative adjment single lead Icd Completed 12/26/2016 73613 EKG Tracing & Interpretation Completed 11/07/2016 61335 Treadmill Interp/Report Only Completed 11/07/2016 38469 Stress Test Supervsn W/Out I/R Completed 10/26/2016 85208 Holter Monitor Review (24 hr)dr review & interp only Completed 10/22/2016 65403 Treadmill Interp/Report Only Completed 10/22/2016 21730 Stress Test Supervsn W/Out I/R Completed 09/19/2016 51581 EKG Tracing & Interpretation Completed 09/12/2016 25187 EKG, Interpretation Only Completed 09/11/2016 36888 ECHO Transthorasic Realtime 2D W Doppler & Color Flow Completed Hosp 09/11/2016 19180 EKG, Interpretation Only Completed 09/10/2016 48614 Left Heart Cath. Incl S/I Coronaries, Angio S/I V Gram Completed If Done 09/10/2016 88117 EKG, Interpretation Only Completed 06/22/2015 Colonoscopy Completed Encounters Type Date Location Provider CPT E/M Dx Office Visit 04/29/2018 [facility] Internal Medicine Erma Marker, [address] L27.0 2:30p - [address] RPA-C Office Visit 03/18/2017 [facility] Deb Argueta M.D., 40650 I48.0 2:40p Database Administration Project Manager [facility], [facility] I47.2 I42.2 Z95.810 Z01.810 H02.409 Office Visit 01/16/2017 10:30a [facility] Internal JeremyPaulina Salomon, 40735 Z00.01 Medicine - [address] Jaime Guillen,FACP I47.2 M72.2 T44.7x5A Z23 Office Visit 12/26/2016 1:20p [facility] Deb Argueta M.D., 20740 Z95.810 Database Administration Project Manager [facility] I47.2 I42.2 Office Visit 10/24/2016 3:20p [facility] Deb Argueta M.D., 31026 I51.81 Database Administration Project Manager [facility] I49.3 Office Visit 09/19/2016 8:20a [facility] Deb Argueta M.D., 70814 I51.81 Database Administration Project Manager [facility] I42.2 Office Visit 09/18/2016 4:00p [facility] Internal Jeremy Salomon, 72990 I21.02 Medicine - Tbjennifer Sandoval M.D.,FACP Z11.59 Office Visit 09/13/2016 12:03p [facility] Deb Argueta M.D., [address] [facility] Office Visit 09/12/2016 11:45a [facility] Deb Argueta M.D., [address] [facility] Office Visit 09/11/2016 11:44a [facility] Deb Argueta M.D., [address] [facility] AT [facility], [facility] Office Visit 09/10/2016 3:49p [facility] Deb Argueta M.D., [address] [facility] Office Visit 06/22/2015 3:00p [facility] Internal Medicine Jeremy Salomon, 39850 Z00.01 - Tbjennifer Sandoval M.D.,FACP I87.2 E66.3 Z11.59 N39.3 Office Visit 02/16/2015 4:20p [facility] Internal Jeremy Salomon, 49701 459.81 Medicine - Tbjennifer Sandoval M.D.,FACP V76.51 Office Visit 01/05/2015 10:40a [facility] Jamaal Aguilar M.D. [address] [address]19.47 - [address] Office Visit 02/03/2013 1:00p [facility] Medicine Jeremy Salomon, 41739 V70.0 - Terrie Guillen,FACP 707.13 278.02 V76.51 427.31 780.79 V06.1 Plan of Care Future Appointment(s):06/18/2018 2:40 pm - Virginia Cordero M.D. at [facility]05/29/2018 - Mauricio Evangelista M.D.K80.10 Calculus of gallbladder w chronic cholecyst w/o obstructionFollow up:OR
[2018-06-07 10:12] VITALS: BP 125/72
--- NOTE | 2018-06-07 13:37 | ED ---
Lower Extremity - HPI Summary HPI Summary: Patient is a 63-year-old male with a history of chronic venous insufficiency to the left lower extremity presenting to the ED with left posterior knee, and calf pain 9 days s/p cholecystectomy. He states it is very difficult to walk up stairs and symptoms are worsened with dorsiflexion. He is currently not anticoagulated takes no aspirin. No history of DVT or PE. Denies any SOB or chest pain. He states he feels otherwise well. - History of Current Complaint Chief Complaint: EDExtremityLower Stated Complaint: LT LEG PAIN/SWELLING POST SURGERY Time Seen by Provider: 06/07/18 08:50 Hx Obtained From: Patient Mechanism Of Injury: Unknown Onset of Pain: Hours, Days Onset/Duration: Days Severity Initially: Moderate Severity Currently: Moderate Pain Intensity: 2 Pain Scale Used: 0-10 Numeric Location: Is Discrete @ - left posterior knee pain and calf pain Associated Signs And Symptoms: Negative: Swelling, Redness, Bruising Aggravating Factor(s): Standing, Ambulation Alleviating Factor(s): Rest Able to Bear Weight: Yes - Risk Factors Gout Risk Factors: Age Over 40, Male DVT Risk Factors: Recent Surgery Septic Arthritis Risk Factor: Negative - Allergies/Home Medications Allergies/Adverse Reactions: Allergies Allergy/AdvReac Type Severity Reaction Status Date / Time quinidine Allergy See Comment Verified 06/07/18 08:51 quinine Allergy See Comment Verified 06/07/18 08:51 Home Medications: Home Medications Metoprolol Succinate [Toprol Xl] 50 mg PO QAM 06/07/18 [History Confirmed ] PMH/Surg Hx/FS Hx/Imm Hx Previously Healthy: Yes Endocrine/Hematology History: Denies: Hx Diabetes Cardiovascular History: Reports: Hx Angina, Hx Auto Implanted Cardiovert Defib, Hx Coronary Artery Disease, Hx Myocardial Infarction, Other Cardiovascular Problems/Disorders - venous statis, syncopal+sustained vtach, hypertrophic myopathy Denies: Hx Hypercholesterolemia, Hx Hypertension, Hx Valvular Heart Disease Respiratory History: Denies: Hx Asthma, Hx Chronic Obstructive Pulmonary Disease (COPD) GI History: Denies: Hx Ileostomy History: Reports: Hx Kidney Stones, Other Problems/Disorders - several kidney stents Denies: Hx Renal Disease Sensory History: Reports: Hx Contacts or Glasses Denies: Hx Legally Blind, Hx Deafness, Hx Hearing Aid Opthamlomology History: Reports: Hx Contacts or Glasses Denies: Hx Legally Blind Neurological History: Denies: Hx Dementia Psychiatric History: Denies: Hx Autism, Hx Panic Disorder - Surgical History Surgery Procedure, Year, and Place: KIDNEY STENTS- LITHO - STENTS REMOVED. TONSILECTOMY. HERNIA. B/L eye surgery d/t droopy eye lids 2016. cardiac cath september 2016. Defib placement November 2016 - Immunization History Hx Pertussis Vaccination: No Immunizations Up to Date: Yes Infectious Disease History: No Infectious Disease History: Denies: Traveled Outside the [place] in Last 30 Days - Family History Known Family History: Positive: Hypertension Negative: Cardiac Disease - father with bypass in 70s. - Social History Occupation: Employed Full-time Lives: With Family Alcohol Use: Occasionally Alcohol Amount: unknown Hx Substance Use: No Substance Use Type: Reports: None Hx Tobacco Use: No Smoking Status (MU): Never Smoked Tobacco Review of Systems Constitutional: Negative Negative: Fever, Chills, Fatigue, Skin Diaphoresis Negative: Palpitations, Chest Pain Negative: Shortness Of Breath, Cough Positive: Arthralgia, Myalgia Skin: Negative Negative: Rash, Bruising Neurological: Negative All Other Systems Reviewed And Are Negative: Yes Physical Exam Triage Information Reviewed: Yes Vital Signs On Initial Exam: Initial Vitals Temp Pulse Resp BP Pulse Ox 98.5 F 93 16 121/81 100 06/07/18 08:46 06/07/18 08:46 06/07/18 08:46 06/07/18 08:46 06/07/18 08:46 Vital Signs Reviewed: Yes Appearance: Positive: Well-Appearing, Well-Nourished Skin: Positive: Warm, Skin Color Reflects Adequate Perfusion Head/Face: Positive: Normal Head/Face Inspection Eyes: Positive: EOMI, JAIRON, Conjunctiva Clear Neck: Positive: Supple, Nontender, No Lymphadenopathy Respiratory/Lung Sounds: Positive: Clear to Auscultation, Breath Sounds Present Cardiovascular: Positive: RRR, Pulses are Symmetrical in both Upper and Lower Extremities Musculoskeletal: Positive: Pain @ - right posterior knee and calf pain without erythema or warmth Neurological: Positive: Speech Normal Psychiatric: Positive: Normal AVPU Assessment: Alert Diagnostics - Vital Signs Vital Signs Temp Pulse Resp BP Pulse Ox 06/07/18 10:11 98.7 F 83 16 125/72 98 06/07/18 08:46 98.5 F 93 16 121/81 100 - Laboratory Lab Statement: Any lab studies that have been ordered have been reviewed, and results considered in the medical decision making process. Lower Extremity Course/Dx - Course Course Of Treatment: Physical examination, positive Homans sign, no erythema or warmth noted. Ultrasound of the left lower extremity obtained which shows an occlusive thrombus to the deep femoral vein. He is given Xarelto 15 mg twice a day 21 days and is to follow-up with his PCP within that timeframe for further evaluation and further medication. - Diagnoses Differential Diagnosis/HQI/PQRI: Positive: DVT, Sprain, Strain Provider Diagnoses: DVT (deep venous thrombosis) Discharge - Sign-Out/Discharge Documenting (check all that apply): Patient Departure - Discharge Plan Condition: Stable Disposition: HOME Prescriptions: Rivaroxaban TAB(*) [Xarelto 15 mg(*)] 15 mg PO DAILY #42 tab Patient Education Materials: Deep Vein Thrombosis (ED) Referrals: Jeremy Saloomn MD [Primary Care Provider] - Additional Instructions: Please follow up with PCP within 21 days for further evaluation and medication - Billing Disposition and Condition Condition: STABLE Disposition: Home
== END 2018-06-07 10:11 | disposition home or self-care (01) ==
LOC: ED 08:45
DX: I82.4Z2 Acute embolism and thrombosis of unspecified deep veins of left distal lower extremity (principal); I82.412 Acute embolism and thrombosis of left femoral vein; Z90.49 Acquired absence of other specified parts of digestive tract; R26.2 Difficulty in walking, not elsewhere classified; I87.2 Venous insufficiency (chronic) (peripheral); Z95.810 Presence of automatic (implantable) cardiac defibrillator; I25.2 Old myocardial infarction; I25.10 Atherosclerotic heart disease of native coronary artery without angina pectoris
CPT/HCPCS: 99282

== ENCOUNTER 2019-01-18 09:55 | Emergency (ER) | payer BC ==
--- NOTE | 2019-01-18 09:59 | UC ---
General HPI - HPI Summary HPI Summary: Patient is 64 yo male presents to urgent with shaking rigors which started approx 90 min ago. Pt with history of myocardial infarction, decreased ejection fraction, and defibrillator status post a V. tach in 2016. P ts/p jd 1 year ago with subsequent RLE DVT on xarelto. pt with PVD and chronic wound LLE - no drainage. Patient states over the last 2-3 weeks he's having increasing episodes of fatigue and decreaesd energy. Patient has had 2-3 nights where he wakes up with night sweats. no documented feer. Patient states he's been very sleepy and falling asleep at inappropriate times. Patient states today he was in the room without patient examined him and he started to have shaking chills. no documented fever. No antipyretic taken. Pt took APAP last night because felt achiness. Patient states he has had a mild intermittent cough that he seems to increase when he eats but no productive sputum. Does not feel like develops food bolus. No CP. No abd pain. No diarrhea. no dysuria, hematuria. mild HARDY. no vision changes. No rash. Patient without any concerns for focal area of infection. Pt's daughter, senior at [employer], had fevers and extensive work up last month - Dx with CMV. No travel outside country. medications reviewed - History of Current Complaint Stated Complaint: PERSONAL Time Seen by Provider: 01/18/19 09:57 Hx Obtained From: Patient, Medical Records Onset Severity: Mild Current Severity: Mild - Allergy/Home Medications Allergies/Adverse Reactions: Allergies Allergy/AdvReac Type Severity Reaction Status Date / Time quinidine Allergy See Comment Verified 01/18/19 09:59 quinine Allergy See Comment Verified 01/18/19 09:59 Home Medications: Home Medications Rivaroxaban TAB(*) [Xarelto 15 mg(*)] 10 mg PO DAILY 01/18/19 [History Confirmed 01/18/19] PMH/Surg Hx/FS Hx/Imm Hx Previously Healthy: Yes - DVT. V tach with defib Cardiovascular History: Pacemaker/ICD, Myocardial Infarction, Deep Vein Thrombosis GI/ History: Kidney Stones, Other - recurrent stents - Surgical History Surgical History: Yes Surgery Procedure, Year, and Place: KIDNEY STENTS- LITHO - STENTS REMOVED. TONSILECTOMY. HERNIA. B/L eye surgery d/t droopy eye lids 2017. cardiac cath september 2016. Defib placement November 2016 - Family History Known Family History: Positive: Hypertension Negative: Cardiac Disease - father with bypass in 70s. - Social History Occupation: Employed Full-time Lives: With Family Alcohol Use: Occasionally Alcohol Amount: unknown Substance Use Type: None Smoking Status (MU): Never Smoked Tobacco - Immunization History Most Recent Influenza Vaccination: 2016 Most Recent Tetanus Shot: unk but "up to date" Most Recent Pneumonia Vaccination: never Review of Systems All Other Systems Reviewed And Are Negative: Yes Constitutional: Positive: Chills, Fatigue, Other - rigors Skin: Positive: Other - venous statis changes LLE Eyes: Positive: Negative ENT: Positive: Negative Respiratory: Positive: Cough. Negative: Shortness Of Breath Cardiovascular: Positive: Negative Gastrointestinal: Positive: Nausea Genitourinary: Positive: Negative Motor: Positive: Negative Neurovascular: Positive: Negative Musculoskeletal: Positive: Negative Neurological: Positive: Headache Is Patient Immunocompromised?: No Physical Exam - Summary Physical Exam Summary: Vital Signs Reviewed: Yes A+Ox3, tired appearing, chills Eyes: Conjunctiva Clear ENT: Hearing grossly normal lips dry Neck: Positive: Supple Respiratory: Positive: No respiratory distress, No accessory muscle use + CTA throughout no w/r Cardiovascular: RRR nl s1, s2 no m/r CBT <2 sec no bruits CBT < 2 sec feet b /l, no bruit mild edema RLE abd soft + BS nt/nd no guarding, no distension Musculoskeletal Exam: NEWMAN x 4 without difficulty Strength Intact, ROM Intact Neurological: Positive: Alert + Oriented, Ambulatory Psychological: Positive: Normal Response, appropriate Skin: Positive: venous statis change LLE -no open wound Triage Information Reviewed: Yes Diagnostics - EKG Cardiac Rate: NL Cardiac Rhythm: Other Rhythm: Old - RBBB Ectopy: None ST Segment: Normal EKG Comparison: No Significant Change - compared 05/28/18 no acute changes Course/Dx - Course Course Of Treatment: Patient presents to urgent care after developing shaking riders at work today. Patient reports 2-3 weeks of increased fatigue and night sweats decreased appetite. Patient with mild nausea, no vomiting. Patient reports mild intermittent cough that he notices when he eats. But does not feel he gets a food bolus impaction. Patient without any open wounds. No dysuria. No documented fevers. Patient's daughter was sick with CMV approximately one month ago. Patient is not on any imaging of suppressants. Patient is on Xarelto for LE DVT. Patient has a defibrillator after Holter monitor diagnosed V. tach. VSS Pt tired appearing with slight chills, pallor No focal infection noted FSBG 69 - will give po juice and recheck EKG -RBBB no change from previous will place IV, 1 liter ns transfer to ED by EMS SPoke with Dr. Danny Loya MD in ED - aware of pt Pt comfortable and in agreement - Diagnoses Provider Diagnosis: Rigors Discharge - Sign-Out/Discharge Documenting (check all that apply): Patient Departure All imaging exams completed and their final reports reviewed: No Studies - Discharge Plan Condition: Good Disposition: TRANS HIGHER LVL OF CARE FAC Referrals: Jeremy Salomon MD [Primary Care Provider] - - Billing Disposition and Condition Condition: GOOD Disposition: Trans Higher Lvl of Care Fac
[2019-01-18] MEDS ORDERED: NS 0.9% 1000 ML** 1,000 ML IV ONE (10:13)
[2019-01-18] MEDS ORDERED: Acetaminophen TAB* 325 MG PO ONE (10:35)
--- NOTE | 2019-01-18 10:37 | UC ---
- Progress Note Progress Note: Recheck temp 101 Given APAP 975mg prior to discharge notified ED Course/Dx - Diagnoses Provider Diagnoses: Rigors Discharge - Sign-Out/Discharge Documenting (check all that apply): Patient Departure All imaging exams completed and their final reports reviewed: No Studies - Discharge Plan Condition: Good Disposition: TRANS HIGHER LVL OF CARE FAC Referrals: Jeremy Salomon MD [Primary Care Provider] - - Billing Disposition and Condition Condition: GOOD Disposition: Trans Higher Lvl of Care Fac
[2019-01-18 13:38] VITALS: BP 150/84
== END 2019-01-18 10:45 | disposition short-term general hospital (02) ==
LOC: UCEAST 09:55
DX: R68.89 Other general symptoms and signs (principal); R53.83 Other fatigue; R61 Generalized hyperhidrosis; R05 Cough; R51 Headache; R11.0 Nausea; I45.10 Unspecified right bundle-branch block; I73.9 Peripheral vascular disease, unspecified; I25.2 Old myocardial infarction; Z95.810 Presence of automatic (implantable) cardiac defibrillator; Z86.718 Personal history of other venous thrombosis and embolism; Z79.01 Long term (current) use of anticoagulants; Z87.442 Personal history of urinary calculi; Z82.49 Family history of ischemic heart disease and other diseases of the circulatory system; Z88.8 Allergy status to other drugs, medicaments and biological substances
CPT/HCPCS: 93005; 96360; 99213; A9270-GY; G0463

== ENCOUNTER → 2019-01-18 11:01 | Emergency (ER) | payer BC ==
[~2019-01-18 11:01] MED LIST changes: +NS 0.9% 1000 ML** 1,000 ML IV ONE; -oxyCODONE/Acetamin 5/325 MG* TAB PO ONE
[2019-01-18 11:44] LABS: ABS Eosinophils 0.1 10^3/ul (0-0.6); ABS Lymphocytes 1.6 10^3/ul (1.0-4.8); ABS Monocytes 0.5 10^3/ul (0-0.8); ABS Neutrophils 2.3 10^3/ul (1.5-7.7); Eosinophil % 1.5 %; Hematocrit 38 % (42-52); Hemoglobin 12.6 g/dL (14.0-18.0); Lymphocyte % 35.7 %; Mean Corpuscular HGB Conc 34 g/dL (31-36); Mean Corpuscular Hemoglobin 29 pg (27-31); Mean Corpuscular Volume 86 fL (80-94); Mean Platelet Volume 6.7 fL (7.4-10.4); Nucleated Red Blood Cells % 0.2; Platelet Count 255 10^3/uL (150-450); Red Blood Count 4.36 10^6 /uL (4.18-5.48); Red Cell Distribution Width 15 % (10.5-15); White Blood Count 4.5 10^3/uL (3.5-10.8)
--- NOTE | 2019-01-18 11:52 | ED ---
Complex/Multi-Sys Presentation - HPI Summary HPI Summary: The patient is a 64 year old M brought in by [facility] presenting to [facility] with a chief complaint of general illness per EMS since last week. Patient reports a cough for the past two months that is aggravated by swallowing or talking for a long time. Patient also reports that daughter was previously sick with CMV for 2 weeks, 3 4 weeks ago. Daughter had high fevers intermittently throughout her disease. Patient reports Sx of non-shaking chills, fatigue, uncontrollable migraines, and heart burn over the course of this past week. Patient also reports "drenching night sweats" on 01/12/19, 01/16/19, and . Patient took APAP last night for aches before bed. Patient reports that a fever started this morning, 01/18/19, and went to [facility] [place]. Per [facility] patient had a fever of 99.7, 102.1, and 100 degrees taken with a forehead thermometer. Patient stated that urgent care administered APAP 975 mg at 10:36 without improvement prior to arrival to [facility]. Upon arrival at 11:04 patient was had a BP of 128/99 and was at 97% 02 saturation on room air. Patient had mouth temperature taken and showed a fever of 101.0 degrees. Per urgent care patient has a Hx of myocardial infarction, decreased ejection fraction, and defibrillator status post a V. tach in 2015. Pt s/p jd 1 year ago with subsequent RLE DVT on xarelto. Patient also has a PSHx of AICD, Pacemaker, and cardiac cath in september 2016. Patient has not seen PCP Dr. Salomon after PCP left place of practice. - History Of Current Complaint Chief Complaint: EDFluSymptoms Time Seen by Provider: 01/18/19 11:04 Hx Obtained From: Patient, EMS, Medical Records Onset/Duration: Gradual Onset, Lasting Weeks - 1, Still Present Timing: Constant, Weeks - 1 Aggravating Factor(s): Nothing Alleviating Factor(s): Nothing Associated Signs And Symptoms: Positive: Headache, Fever, Diaphoresis - During sleep, Other - non-shaking chills, fatigue - Allergies/Home Medications Allergies/Adverse Reactions: Allergies Allergy/AdvReac Type Severity Reaction Status Date / Time quinidine Allergy See Comment Verified 01/18/19 09:59 quinine Allergy See Comment Verified 01/18/19 09:59 Home Medications: Home Medications Rivaroxaban TAB(*) [Xarelto 10 mg (*)] 10 mg PO DAILY 01/18/19 [History Confirmed 01/18/19] PMH/Surg Hx/FS Hx/Imm Hx Previously Healthy: No Endocrine/Hematology History: Denies: Hx Diabetes Cardiovascular History: Reports: Hx Angina, Hx Auto Implanted Cardiovert Defib, Hx Coronary Artery Disease, Hx Myocardial Infarction, Hx Pacemaker/ICD, Other Cardiovascular Problems/Disorders - venous statis, syncopal+sustained vtach, hypertrophic myopathy Denies: Hx Hypercholesterolemia, Hx Hypertension, Hx Valvular Heart Disease Respiratory History: Denies: Hx Asthma, Hx Chronic Obstructive Pulmonary Disease (COPD) GI History: Denies: Hx Ileostomy History: Reports: Hx Kidney Stones, Other Problems/Disorders - several kidney stents Denies: Hx Renal Disease Sensory History: Reports: Hx Contacts or Glasses Denies: Hx Legally Blind, Hx Deafness, Hx Hearing Aid Opthamlomology History: Reports: Hx Contacts or Glasses Denies: Hx Legally Blind Neurological History: Denies: Hx Dementia Psychiatric History: Denies: Hx Autism, Hx Panic Disorder - Surgical History Surgery Procedure, Year, and Place: KIDNEY STENTS- LITHO - STENTS REMOVED. TONSILECTOMY. HERNIA. B/L eye surgery d/t droopy eye lids 2016. cardiac cath september 2016. Defib placement November 2016 Infectious Disease History: No Infectious Disease History: Denies: Traveled Outside the [place] in Last 30 Days - Family History Known Family History: Positive: Hypertension Negative: Cardiac Disease - father with bypass in 70s. - Social History Alcohol Use: Occasionally Alcohol Amount: unknown Hx Substance Use: No Substance Use Type: Reports: None Hx Tobacco Use: No Smoking Status (MU): Never Smoked Tobacco Review of Systems Positive: Fever, Chills, Fatigue, Skin Diaphoresis - Night diaphoresis Positive: Cough - 2 months Positive: Headache - Migraine All Other Systems Reviewed And Are Negative: Yes Physical Exam - Summary Physical Exam Summary: Appearance: The patient is well-nourished in no acute distress and in no acute pain. Skin: The skin is warm and dry and skin color reflects adequate perfusion. HEENT: The head is normocephalic and atraumatic. The pupils are equal and reactive. The conjunctivae are clear and without drainage. Nares are patent and without drainage. Mouth reveals moist mucous membranes and the throat is without erythema and exudate. The external ears are intact. The ear canals are patent and without drainage. The tympanic membranes are intact. Neck: The neck is supple with full range of motion and non-tender. There are no carotid bruits. There is no neck vein distension. Respiratory: Chest is non-tender. Lungs are clear to auscultation and breath sounds are symmetrical and equal. Cardiovascular: Heart is regular rate and rhythm. There is no murmur or rub auscultated. There is no peripheral edema and pulses are symmetrical and equal. Abdomen: The abdomen is soft and non-tender. There are normal bowel sounds heard in all four quadrants and there is no organomegaly palpated. Musculoskeletal: There is no back tenderness noted. Extremities are non-tender with full range of motion. There is good capillary refill. There is no peripheral edema or calf tenderness elicited. Neurological: Patient is alert and oriented to person, place and time. The patient has symmetrical motor strength in all four extremities. Cranial nerves are grossly intact. Deep tendon reflexes are symmetrical and equal in all four extremities. Psychiatric: The patient has an appropriate affect and does not exhibit any anxiety or depression Triage Information Reviewed: Yes Vital Signs On Initial Exam: Initial Vitals Temp Pulse Resp BP Pulse Ox 101.0 F 93 16 128/99 98 01/18/19 11:05 01/18/19 11:05 01/18/19 11:05 01/18/19 11:05 01/18/19 11:05 Vital Signs Reviewed: Yes Diagnostics - Vital Signs Vital Signs Temp Pulse Resp BP Pulse Ox 01/18/19 11:05 101.0 F 93 16 128/99 98 - Laboratory Result Diagrams: 01/18/19 11:30 01/18/19 11:30 Lab Statement: Any lab studies that have been ordered have been reviewed, and results considered in the medical decision making process. - Radiology CXR Radiology Interpretation Completed By: Radiologist Summary of Radiographic Findings: NO EVIDENCE FOR ACTIVE CARDIOPULMONARY DISEASE. ED physician has reviewed this report. 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 IV was established and saline was ordered. He had a negative flu swab and his labs were within normal limits with only very slight elevations of his liver enzymes that are negative. This may represent a viral syndrome. I reviewed the case with Dr. Miller who recommended a course of doxycycline empirically and follow-up. On his recommendation I added CMV antigens to the blood work. 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 - Diagnoses Provider Diagnoses: Fever - Physician Notifications Discussed Care Of Patient With: Mendel Miller MD Time Discussed With Above Provider: 12:54 Instructed by Provider To: Other - Discussed complications of the case with Dr. Miller Discharge - Sign-Out/Discharge Documenting (check all that apply): Patient Departure - discharge Patient Received Moderate/Deep Sedation with Procedure: No - Discharge Plan Condition: Stable Disposition: HOME Prescriptions: DOXYcycline CAP(*) [DOXYcycline 100MG CAP(*)] 100 mg PO BID #42 cap Patient Education Materials: Fever in Adults (ED) Referrals: Angela NEUMANN,Mendel Reaves [Medical Doctor] - 2 Days Niya Campbell MD [Primary Care Provider] - 3 Days Additional Instructions: Please follow up with Dr. Miller in 2 days, and Dr. Campbell in 3 days. Return to the Emergency Department for any new or worsening symptoms. - Billing Disposition and Condition Condition: STABLE Disposition: Home - Attestation Statements Document Initiated by Scribe: Yes Documenting Scribe: Rudi Jimenes Provider For Whom Vanesa is Documenting (Include Credential): Brian Delgado MD Scribe Attestation: Savage Ross Jacob Kolenda, scribed for Brian Delgado MD on 01/18/19 at 1622. Scribe Documentation Reviewed: Yes Provider Attestation: The documentation as recorded by the Savage salmon Jacob Kolenda accurately reflects the service I personally performed and the decisions made by me, Brian Delgado MD Status of Scribe Document: Viewed
[2019-01-18 11:58] LABS: INR 1.85 (0.82-1.09)
[2019-01-18 12:02] LABS: Troponin I 0.01 ng/mL (<0.04)
[2019-01-18 12:03] LABS: Albumin 3.7 g/dL (3.2-5.2); Albumin/Globulin Ratio 1.2 (1-3); BUN/Creatinine Ratio 12.5 (8-20); C Reactive Protein 18.17 mg/L (<8.01); Calcium 8.6 mg/dL (8.6-10.3); EGFR African American 79.9 (>60); Globulin 3.2 g/dL (2-4); Potassium 4.1 mmol/L (3.5-5.0); Total Bilirubin 0.8 mg/dL (0.2-1.0); Total Protein 6.9 g/dL (6.4-8.9)
[2019-01-18 12:50] LABS: Urine Appearance Clear; Urine Bacteria Absent (Absent); Urine Bilirubin Negative (Negative); Urine Blood 2+ (Negative); Urine Color Yellow; Urine Glucose Negative (Negative); Urine Ketones Negative (Negative); Urine Nitrite Negative (Negative); Urine Protein Negative (Negative); Urine Red Blood Cell 3+(>10/hpf) (Absent); Urine Specific Gravity 1.011 (1.010-1.030); Urine Urobilinogen Negative (Negative); Urine White Blood Cell Trace(0-5/hpf) (Absent)
[2019-01-18 13:05] LABS: Influenza A Molecular NEGATIVE (Negative); Influenza B Molecular NEGATIVE (Negative)
[2019-01-18 13:59] VITALS: BP 122/69
[2019-01-19 12:03] LABS: Cytomegalovirus IgG Antibody Negative (Negative)
== END | disposition home or self-care (01) ==
LOC: ED 11:01
DX: R50.9 Fever, unspecified (principal); R05 Cough; I25.2 Old myocardial infarction; I25.10 Atherosclerotic heart disease of native coronary artery without angina pectoris; Z95.0 Presence of cardiac pacemaker
CPT/HCPCS: 36415; 71045; 80053; 81003; 81015; 83605; 84484; 85025; 85610; 86140; 86644; 86645; 87040; 87086; 96360; 99283

== ENCOUNTER 2020-07-04 10:00 | Observation (INO) ==
[2020-07-04] MEDS ORDERED: Albuterol HFA INHALER 8 gm MDI INH ONE (10:33)
[2020-07-04] MEDS ORDERED: NS 0.9% 1000 ml BAG 1,000 ML IV ONE (11:39)
[2020-07-04 12:08] LABS: ABS Lymphocytes 1.2 10^3/ul (1.0-4.8); ABS Monocytes 0.5 10^3/ul (0-0.8); ABS Neutrophils 3.9 10^3/ul (1.5-7.7); Eosinophil % 0.1 %; Hematocrit 36 % (42-52); Hemoglobin 11.9 g/dL (14.0-18.0); Lymphocyte % 21.2 %; Mean Corpuscular HGB Conc 34 g/dL (31-36); Mean Corpuscular Hemoglobin 29 pg (27-31); Mean Corpuscular Volume 86 fL (80-94); Mean Platelet Volume 7.3 fL (7.4-10.4); Nucleated Red Blood Cells % 0.1; Platelet Count 239 10^3/uL (150-450); Red Blood Count 4.14 10^6 /uL (4.18-5.48); Red Cell Distribution Width 14 % (10-15); White Blood Count 5.6 10^3/uL (3.5-10.8)
[2020-07-04 12:27] LABS: ALT 25 U/L (7-52); AST 47 U/L (13-39); Albumin 3.7 g/dL (3.2-5.2); Alkaline Phosphatase 41 U/L (34-104); Anion Gap 6 mmol/L (2-11); Blood Urea Nitrogen 16 mg/dL (6-24); C Reactive Protein 60.99 mg/L (<8.01); CO2 Carbon Dioxide 27 mmol/L (22-32); Calcium 8.3 mg/dL (8.6-10.3); Chloride 99 mmol/L (101-111); EGFR African American 90.7 (>60); Globulin 3.7 g/dL (2-4); Glucose 104 mg/dL (70-100); Potassium 4.2 mmol/L (3.5-5.0); Sodium 132 mmol/L (135-145); Total Protein 7.4 g/dL (6.4-8.9)
[2020-07-04 12:28] LABS: Troponin I 0.01 ng/mL (<0.03)
[2020-07-04 12:32] LABS: Influenza A Molecular Negative (Negative); Influenza B Molecular Negative (Negative)
[2020-07-04] MEDS ORDERED: Al Hydrox/Mg Hydrox/Simet LIQ 30 ML UDC PO PRN (13:16)
[2020-07-04] MEDS ORDERED: Ondansetron 4 mg VIAL 2 MG/ML 2 ml VIAL IV PRN (13:16)
[2020-07-04] MEDS ORDERED: Remdesivir 5 MG/ML LIQ IV Vial 200 MG in NS 0.9% 250 ml 210 ML IV ONE (13:19)
[2020-07-04] MEDS ORDERED: Albuterol HFA INHALER 8 gm MDI INH PRN (13:26)
[2020-07-04 13:41] LABS: Activated Partial Thrombo Time 31.2 seconds (26.0-38.0)
[2020-07-04] MEDS: Lactated Ringers 1000 ml BAG 1,000 ML IV SCH (15:48)
[2020-07-05] MEDS: Lactated Ringers 1000 ml BAG 1,000 ML IV SCH ×2 (00:39→07:57)
[2020-07-05] MEDS ORDERED: Cholecalciferol (VIT D3) 1,000 unit TAB PO SCH (09:00)
[2020-07-05 09:25] LABS: ABS Lymphocytes 1.1 10^3/ul (1.0-4.8); ABS Monocytes 0.2 10^3/ul (0-0.8); ABS Neutrophils 2.3 10^3/ul (1.5-7.7); Hematocrit 34 % (42-52); Hemoglobin 11.4 g/dL (14.0-18.0); Lymphocyte % 30.4 %; Mean Corpuscular HGB Conc 34 g/dL (31-36); Mean Corpuscular Hemoglobin 30 pg (27-31); Mean Corpuscular Volume 87 fL (80-94); Mean Platelet Volume 7.3 fL (7.4-10.4); Platelet Count 271 10^3/uL (150-450); Red Blood Count 3.88 10^6 /uL (4.18-5.48); Red Cell Distribution Width 14 % (10-15); White Blood Count 3.7 10^3/uL (3.5-10.8)
[2020-07-05 09:43] LABS: Albumin 3.4 g/dL (3.2-5.2); BUN/Creatinine Ratio 19.3 (8-20); C Reactive Protein 48.23 mg/L (<8.01); Calcium 8.4 mg/dL (8.6-10.3); EGFR African American 112.5 (>60); Globulin 3.4 g/dL (2-4); Total Bilirubin 0.4 mg/dL (0.2-1.0); Total Protein 6.8 g/dL (6.4-8.9)
[2020-07-05] MEDS ORDERED: Remdesivir 5 MG/ML LIQ IV Vial 100 MG in NS 0.9% 250 ml 230 ML IV SCH (15:30)
[2020-07-05 16:01] VITALS: BP 125/63
== END 2020-07-05 17:30 | disposition home or self-care (01) ==
LOC: ED 10:00 → MED 10:00
PROVIDERS: ADMIT Pediatrics; ATTEND Pediatrics

== ENCOUNTER 2021-05-01 15:26 | Observation (INO) ==
[2021-05-01] MEDS ORDERED: Lactated Ringers 1000 ml BAG 1,000 ML IV ONE (15:37)
[2021-05-01] MEDS ORDERED: Morphine 4 MG/ML VIAL (1 ml) IV ONE (15:50)
[2021-05-01] MEDS ORDERED: Ondansetron 4 mg VIAL 2 MG/ML 2 ml VIAL IV ONE (15:50)
[2021-05-01 16:17] LABS: ABS Eosinophils 0.2 10^3/ul (0-0.6); ABS Lymphocytes 2.7 10^3/ul (1.0-4.8); ABS Monocytes 0.6 10^3/ul (0-0.8); ABS Neutrophils 2.5 10^3/ul (1.5-7.7); Eosinophil % 2.5 %; Hematocrit 40 % (42-52); Hemoglobin 13.5 g/dL (14.0-18.0); Lymphocyte % 44.9 %; Mean Corpuscular HGB Conc 34 g/dL (31-36); Mean Corpuscular Hemoglobin 30 pg (27-31); Mean Corpuscular Volume 90 fL (80-94); Mean Platelet Volume 7.7 fL (7.4-10.4); Nucleated Red Blood Cells % 0.2; Platelet Count 208 10^3/uL (150-450); Red Blood Count 4.49 10^6 /uL (4.18-5.48); Red Cell Distribution Width 15 % (10-15); White Blood Count 6.1 10^3/uL (3.5-10.8)
[2021-05-01] MEDS ORDERED: HYDROmorphone 0.5 MG/0.5 ML SYRINGE IV ONE (16:31)
[2021-05-01 16:38] LABS: Albumin 4.2 g/dL (3.2-5.2); Albumin/Globulin Ratio 1.4 (1-3); EGFR African American 84.6 (>60); EGFR Non-African American 69.9 (>60); Globulin 3.1 g/dL (2-4); Total Bilirubin 0.5 mg/dL (0.2-1.0); Total Protein 7.3 g/dL (6.4-8.9)
[2021-05-01] MEDS ORDERED: Iohexol 300 (CONTRAST) 10 ML SDV IV ONE (16:53)
[2021-05-01 17:04] LABS: Urine Appearance Turbid; Urine Bacteria Absent (Absent); Urine Bilirubin Negative (Negative); Urine Blood 3+ (Negative); Urine Color Red; Urine Glucose Negative (Negative); Urine Ketones Negative (Negative); Urine Nitrite Negative (Negative); Urine Protein 2+(100 mg/dL) (Negative); Urine Red Blood Cell 3+(>10/hpf) (Absent); Urine Specific Gravity 1.025 (1.002-1.030); Urine Urobilinogen Negative (Negative); Urine White Blood Cell Absent (Absent); Urine Yeast Present (Absent)
[2021-05-01 18:18] LABS: Troponin I 0.01 ng/mL (<0.03)
[2021-05-01] MEDS ORDERED: Ondansetron 4 mg VIAL 2 MG/ML 2 ml VIAL IV PRN (19:18)
[2021-05-01] MEDS ORDERED: cefTRIAXone 2 GM ADDV.VIAL 2 GM in NS 0.9% 100 ml BAG 100 ML IVPB ONE (19:34)
[2021-05-01] MEDS ORDERED: Lactated Ringers 1000 ml BAG 1,000 ML IV SCH (20:00)
[2021-05-01] MEDS ORDERED: HYDROmorphone 0.5 MG/0.5 ML SYRINGE IV SLOW PU PRN (21:26)
[2021-05-02 05:45] LABS: ABS Eosinophils 0.1 10^3/ul (0-0.6); ABS Lymphocytes 1.8 10^3/ul (1.0-4.8); ABS Monocytes 0.6 10^3/ul (0-0.8); ABS Neutrophils 3.2 10^3/ul (1.5-7.7); Eosinophil % 1.8 %; Hematocrit 37 % (42-52); Hemoglobin 12.4 g/dL (14.0-18.0); Lymphocyte % 31.2 %; Mean Corpuscular HGB Conc 34 g/dL (31-36); Mean Corpuscular Hemoglobin 30 pg (27-31); Mean Corpuscular Volume 90 fL (80-94); Mean Platelet Volume 7.9 fL (7.4-10.4); Platelet Count 179 10^3/uL (150-450); Red Blood Count 4.12 10^6 /uL (4.18-5.48); Red Cell Distribution Width 15 % (10-15); White Blood Count 5.7 10^3/uL (3.5-10.8)
[2021-05-02 06:00] LABS: Calcium 8.5 mg/dL (8.6-10.3); EGFR African American 106.2 (>60); EGFR Non-African American 87.8 (>60); Potassium 3.9 mmol/L (3.5-5.0)
[2021-05-02] MEDS ORDERED: Cholecalciferol (VIT D3) 1,000 unit TAB PO SCH (09:00)
[2021-05-02] MEDS ORDERED: Gentamicin ADULT 160 MG in NS 0.9% 100 ml BAG 100 ML IVPB ONE (10:00)
[2021-05-02] MEDS ORDERED: Iohexol 180 (CONTRAST) 20 ML SDV IV ONE (10:36)
[2021-05-02] MEDS ORDERED: fentaNYL 100 mcg/2 ml 50 MCG/ML VIAL ONE (10:49)
[2021-05-02] MEDS ORDERED: Midazolam 2 mg/2 ml VIAL 1 mg/ml 2 ml VIAL (2 mg) ONE (10:49)
[2021-05-02 14:37] VITALS: BP 121/78
== END 2021-05-02 15:00 | disposition home or self-care (01) ==
LOC: MEDTELE 15:26 → ED 15:26 → SUATTDRO 21:26
PROVIDERS: ADMIT Internal Medicine; ATTEND Hospitalist